=== PATIENT | female | born 1970 | race Two or more races ===

== ENCOUNTER 2025-04-14 14:49 | Inpatient (IN) | payer BC, OTHER ==
[~2025-04-14] VITALS: Ht 152.4 cm; Wt 87.0 kg
--- NOTE | 2025-04-14 14:54 | ED.PDOC ---
History of Present Illness HPI Comments 54-year-old female brought by paramedics because of shortness a breath which started this morning. She does have history of multiple sclerosis. She is paraplegic. Being taken care of by family member. Paramedics noticed her saturation was 70% on room air. She was placed on 10 L face mask which increased the saturation above 90%. Patient unable to express herself because of shortness a breath. Denies any other symptoms. 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 History Social History Smoker: Non-Smoker Alcohol: Denies ETOH Use Drugs: Denies Drug Use Constitutional: denies: chills, diaphoresis, fatigue, fever, malaise, sweats, weakness, others EENTM: denies: blurred vision, double vision, ear bleeding, ear discharge, ear drainage, ear pain, ear ringing, eye pain, eye redness, hearing loss, mouth pain, mouth swelling, nasal discharge, nose bleeding, nose congestion, nose pain, photophobia, tearing, throat pain, throat swelling, voice changes, others Respiratory: reports: shortness of breath; denies: cough, hemoptysis, orthopnea, SOB at rest, SOB with excertion, stridor, wheezing, others Cardiovascular: denies: chest pain, dizzy spells, diaphoresis, Dyspnea on exertion, edema, irregular heart beat, left arm pain, lightheadedness, palpitations, PND, syncope, others Gastrointestinal: denies: abdomen distended, abdominal pain, blood streaked bowels, constipated, diarrhea, dysphagia, difficulty swallowing, hematemesis, melena, nausea, poor appetite, poor fluid intake, rectal bleeding, rectal pain, vomiting, others Genitourinary: denies: abnormal vagina bleeding, burning, dyspareunia, dysuria, flank pain, frequency, hematuria, incontinence, pain, , vagina discharge, urgency, others Neurological: denies: dizziness, fainting, headache, left sided numbness, left sided weakness, numbness, paresthesia, pre-existing deficit, right sided numbness, right sided weakness, seizure, speech problems, tingling, tremors, weakness, others Musculoskeletal: denies: back pain, gout, joint pain, joint swelling, muscle pain, muscle stiffness, neck pain, others Integumetry: denies: bruises, change in color, change in hair/nails, dryness, laceration, lesions, lumps, rash, wounds, others Allergic/Immunocompromised: denies: Difficulty Healing, Frequent Infections, Hives, Itching, others Hematologic/Lymphatic: denies: anemia, blood clots, easy bleeding, easy bruising, swollen glands, others Endocrine: denies: excessive hunger, excessive sweating, excessive thirst, excessive urination, flushing, intolerance to cold, intolerance to heat, unexplained weight gain, unexplained weight loss, others Psychiatric: denies: anxiety, bipolar disorder, depression, hopeless, panic disorder, schizophrenia, sleepless, suicidal, others Physical Exam General Appearance: Moderate Distress HEENT: Normal ENT Inspection, Pharynx Normal, TMs Normal Neck: Full Range of Motion, Non-Tender, Normal, Normal Inspection Respiratory: Other (Coarse breath sounds) Cardiovascular: No Edema, No JVD, No Murmur, No Gallop, Normal Peripheral Pulses, Regular Rate/Rhythm Breast Exam: Deferred Gastrointestinal: No Organomegaly, Non Tender, No Pulsatile Mass, Normal Bowel Sounds, Soft Genitalia: Deferred Pelvic: Deferred Rectal: Deferred Extremities: No calf tenderness, No pedal edema, Other (Paraplegic) Musculoskeletal : Apperance: Normal Neurologic: Alert Cerebellar Function: NOT DONE Reflexes: NOT DONE Skin: Normal Color Peripheral Pulses: 3+ Radial (R), 3+ Radial (L) Lymphatic: No Adenopathy Was a procedure done? Was a procedure done?: No Differential Dx Considerations may include: Pneumonia Electrolyte imbalance X-Ray, Labs, Meds, VS Vital Signs Date Time Temp Pulse Resp B/P (MAP) Pulse Ox O2 Delivery O2 Flow Rate FiO2 04/14/25 15:51 101.6 04/14/25 15:30 101.6 99 14 102/65 (77) 92 101.6 04/14/25 15:30 99 19 92 Nasal Cannula* 3 32 04/14/25 15:06 101.6 100 22 115/68 (84) 93 101.6 04/14/25 15:06 22 93 Non-Rebreather 8 N/A Lab Test 04/14/25 15:29 04/14/25 15:17 Range/Units White Blood Count 6.8 4.4-10.8 10^3/uL Red Blood Count 4.67 4.0-5.20 10^6/uL Hemoglobin 12.8 12.2-16.2 g/dL Hematocrit 38.3 36.0-46.0 % Mean Corpuscular Volume 81.9 80.0-100.0 fL Mean Corpuscular Hemoglobin 27.3 L 28.0-32.0 pg Mean Corpuscular Hemoglobin Concent 33.4 32.0-36.0 g/dL Red Cell Distribution Width 15.2 H 11.8-14.3 % Platelet Count 207 140-450 10^3/uL Mean Platelet Volume 8.2 6.9-10.8 fL Neutrophils (%) (Auto) 86.1 H 37.0-80.0 % Lymphocytes (%) (Auto) 8.8 L 10.0-50.0 % Monocytes (%) (Auto) 5.0 0.0-12.0 % Eosinophils (%) (Auto) 0.0 0.0-7.0 % Basophils (%) (Auto) 0.1 0.0-2.0 % Neutrophils # (Auto) 5.9 1.6-8.6 10 ^3/uL Lymphocytes # (Auto) 0.6 0.4-5.4 10 ^3/uL Monocytes # (Auto) 0.3 0-1.3 10 ^3/uL Eosinophils # (Auto) 0 0-0.8 10 ^3/uL Basophils # (Auto) 0 0-0.2 10 ^3/uL Nucleated Red Blood Cells 0.0 % Sodium Level 132 L 136-145 mmol/L Potassium Level 3.2 L 3.5-5.1 mmol/L Chloride Level 93 L 98-107 mmol/L Carbon Dioxide Level 27 20-31 mmol/L Anion Gap 12 5-15 Blood Urea Nitrogen 5 L 9-23 mg/dL Creatinine 0.24 L 0.550-1.02 mg/dL Glomerular Filtration Rate Calc 135 >90 mL/min BUN/Creatinine Ratio 20.8 H 10.0-20.0 Serum Glucose 113 H 74-106 mg/dL Lactic Acid Level 1.5 0.4-2.0 mmol/L Calcium Level 8.2 L 8.7-10.4 mg/dL Troponin I High Sensitivity 6 </=34 ng/L Urine Color Yellow Yellow Urine Clarity Turbid H Clear Urine pH 7.0 5.0-9.0 Urine Specific [place] 1.021 1.001-1.035 Urine Protein 1+ H Negative Urine Ketones 3+ H Negative Urine Blood Negative Negative /uL Urine Nitrite 2+ H Negative Urine Bilirubin Negative Negative Urine Urobilinogen Normal Negative mg/dL Urine Leukocyte Esterase Negative Negative /uL Urine RBC 4 0 - 4 /hpf Urine Microscopic WBC 10 H 0-5 /HPF Urine Squamous Epithelial Cells Few <5 /hpf Urine Amorphous Crystals Few None Seen /hpf Urine Bacteria Few H None Seen /hpf Urine Mucus Few None Seen Urine Glucose Normal Normal mg/dL Current Medications Medications (Trade) Dose Ordered Sig/Oscar Route Start Time Stop Time Status Last Admin Ceftriaxone Sodium 50 ml @ 100 mls/hr ONCE ONCE IV 04/14/25 15:00 04/14/25 15:29 DC 04/14/25 15:30 Sodium Chloride 1,000 ml @ 1,000 mls/hr Q1H ONCE IV 04/14/25 15:00 04/14/25 15:59 DC 04/14/25 15:30 Acetaminophen (Tylenol Tablet) 650 mg ONCE ONCE PO 04/14/25 15:45 04/14/25 15:46 DC 04/14/25 15:51 Patient alert. Placed on oxygen. Shortness a breath. Answering questions. Paraplegic. Possible pneumonia. Establish intravenous access. Was given fluids. Possible sepsis. Was given Rocephin. Was given azithromycin. Explained to the patient. Continue monitoring. Time of 1ST Reevaluation: 14:56 Reevaluation 1ST: Unchanged Patient Education/Counseling: Diagnosis, Treatment, Prognosis, Need For Follow Up Family Education/Counseling: No Family Present SEPSIS Sepsis Screen Physician Orders Chest Portable (04/14/25 14:57) Blood Culture (04/14/25 14:51) Azithromycin 500mg/ 250ml (Zithromax 50 (04/14/25 15:00) Sodium Chloride 0.9% (04/14/25 15:00) Electrocardigram (04/14/25 15:14) Sodium Chloride 0.9% (04/14/25 15:45) Vital Signs Date Time Temp Pulse Resp B/P (MAP) Pulse Ox O2 Delivery O2 Flow Rate FiO2 04/14/25 15:51 101.6 04/14/25 15:30 101.6 99 14 102/65 (77) 92 101.6 04/14/25 15:30 99 19 92 Nasal Cannula* 3 32 04/14/25 15:06 101.6 100 22 115/68 (84) 93 101.6 04/14/25 15:06 22 93 Non-Rebreather 8 N/A Laboratory Tests Test 04/14/25 15:29 Lactic Acid Level 1.5 mmol/L (0.4-2.0) White Blood Count 6.8 10^3/uL (4.4-10.8) Medications Medications Dose Ordered Sig/Oscar Route Start Time Stop Time Status Last Admin Dose Admin Acetaminophen 650 mg ONCE ONCE PO 04/14/25 15:45 04/14/25 15:46 DC 04/14/25 15:51 Ceftriaxone Sodium 50 ml @ 100 mls/hr ONCE ONCE IV 04/14/25 15:00 04/14/25 15:29 DC 04/14/25 15:30 Sodium Chloride 1,000 ml @ 1,000 mls/hr Q1H ONCE IV 04/14/25 15:00 04/14/25 15:59 DC 04/14/25 15:30 Departure 1 Departure Time of Disposition: 14:57 Impression: Primary Impression: Acute respiratory failure Qualified Codes: J96.01 - Acute respiratory failure with hypoxia Additional Impressions: Pneumonia Qualified Codes: J18.9 - Pneumonia, unspecified organism Sepsis due to urinary tract infection Disposition: ADMITTED INPATIENT Admit to: Med Surg Condition: Guarded Critical Care Note Critical Care Time?: Yes (90 min-critical care time only) Critical care comment: Placed on oxygen Stability Stability form required: No Heart Score Heart Score: Heart Score Response (Comments) Value History N/A 0 EKG N/A 0 Age N/A 0 Risk Factors N/A 0 Troponin N/A 0 Total 0 MARISELA WHITMORE MD Apr 14, 2025 14:54
[2025-04-14 15:30] VITALS: PULSE 99; RESP 19; O2SAT 92
[2025-04-14] MEDS: SODIUM CHLORIDE 0.9% 1,000 ML IV ONE ×3 (15:30→19:00)
[2025-04-14] MEDS: cefTRIAXone 1GM/50ML D5W 50 ML IV ONE (15:30)
--- NOTE | 2025-04-14 15:35 | DVH ---
EXAM: XY CHEST PORTABLE Indication: sob Technique: Single frontal view of the chest was obtained Comparison: None FINDINGS: Lines and Tubes: None Lungs: Multifocal consolidative opacities. Low lung volumes. Pleura: No effusion. No pneumothorax. Cardiomediastinal contours: Unremarkable. Suggestion of a large hiatal hernia. Bones: No acute osseous abnormality. IMPRESSION: Multifocal pneumonia. Suggestion of a large hiatal hernia.
[2025-04-14 15:41] LABS: Hematocrit 38.3 % (36.0-46.0); Hemoglobin 12.8 g/dL (12.2-16.2); Mean Corpuscular Hemoglobin 27.3 pg (28.0-32.0); Mean Corpuscular Volume 81.9 fL (80.0-100.0); Nucleated Red Blood Cells % 0.0 %
[2025-04-14 15:49] LABS: Anion Gap 12 (5-15); Carbon Dioxide 27 mmol/L (20-31)
[2025-04-14] MEDS: ACETAMINOPHEN 325 MG TAB PO ONE (15:51)
[2025-04-14 15:53] LABS: Calcium 8.2 mg/dL (8.7-10.4); Chloride 93 mmol/L (98-107); Potassium 3.2 mmol/L (3.5-5.1); Sodium 132 mmol/L (136-145)
[2025-04-14 15:55] LABS: BUN/Creatinine Ratio 20.8 (10.0-20.0); Blood Urea Nitrogen 5 mg/dL (9-23); Glucose 113 mg/dL (74-106)
[2025-04-14 16:04] LABS: Urine Amorphous Crystal FEW /hpf (None Seen); Urine Protein, UAD 1+ (Negative)
[2025-04-14] MEDS: AZITHROMYCIN 500MG/ 250ML 250 ML IV ONE (16:43)
[2025-04-14] MEDS: POTASSIUM EFFERVESENT TAB 25 MEQ PO ONE (16:44)
[2025-04-14] MEDS ORDERED: ONDANSETRON HCL 4 MG/2 ML VIAL IV PRN (19:00)
[2025-04-14] MEDS ORDERED: ALBUTEROL SULF 2.5 MG/0.5ML(0.5%) NEB SOLN NEB PRN (19:00)
[2025-04-14 19:25] VITALS: O2SAT 95
[2025-04-14 19:30] VITALS: PULSE 91; RESP 14; O2SAT 98
[2025-04-14 21:42] VITALS: BP 102/65; PULSE 84; RESP 12; TEMP 98.7; O2SAT 95
--- NOTE | 2025-04-14 22:31 | DVHHP2 ---
History of Present Illness Reason for Visit: Shortness for breath History of Present Illness 54-year-old female presents for evaluation of shortness for breath. Patient with a history of quadriplegia secondary to multiple sclerosis and bed ridden presents for a two day history of worsening shortness for breath. Patient has has been reports symptoms of a cold for the past one-week. He states that over the past two days patient has been having intermittent fever with cough and shortness for breath. No complaints of chest pain. Past Medical History Multiple sclerosis Past Surgical History Denies Family History Noncontributory Smoke: No ALCOHOL: none Drugs: None Lives: with Family Review of Systems Review of Systems Review of systems are currently negative otherwise addressed in HPI. Allergies: Coded Allergies: NO KNOWN ALLERGIES (Unverified , 05/21/14) Medications Current Medications Medications Dose Ordered Sig/Oscar Route Start Time Stop Time Status Last Admin Dose Admin Ceftriaxone Sodium 50 ml @ 100 mls/hr DAILY@09 IV 04/15/25 09:00 Azithromycin 250 ml @ 125 mls/hr DAILY IV 04/15/25 10:00 Albuterol 2.5 mg Q6HPRN PRN NEB 04/14/25 19:00 Acetaminophen/ Hydrocodone Bitart 1 tab Q4HP PRN PO 04/14/25 19:00 Ondansetron HCl 4 mg Q4HP PRN IV 04/14/25 19:00 Enoxaparin Sodium 40 mg DAILY SC 04/15/25 10:00 Acetaminophen 650 mg Q6HP PRN PO 04/14/25 19:00 Exam Vital Signs Vital Signs Date Time Temp Pulse Resp B/P (MAP) Pulse Ox O2 Delivery O2 Flow Rate FiO2 04/14/25 21:42 98.7 84 12 102/65 95 3.0 32 98.7 04/14/25 19:25 Nasal Cannula* Exam Gen: 54-year-old female in mild distress Skin: Warm, dry, normal color and texture, no rash. HEENT: Normocephalic atraumatic, mucous membranes moist and pink. Neck: Cervical and supraclavicular nodes normal without enlargement, trachea is midline, thyroid gland is normal without masses. Pulmonary: Bilateral rhonchi Cardiac: Regular rate and rhythm. No murmur Abdomen: Soft, nontender, nondistended, bowel sounds present all 4 quadrants, no guarding, no rigidity, no organomegaly. Extremities: No cyanosis, clubbing, no edema Neuro: Quadriplegia secondary to MS Labs/Xrays ORDERING PHYSICIAN: MARISELA WHITMORE MD PROCEDURE(s): CXRP - CHEST PORTABLE REASON: sob ORDER NUMBER(s): [id number], ACCESSION NUMBER(s): [id number] EXAM: XY CHEST PORTABLE Indication: sob Technique: Single frontal view of the chest was obtained Comparison: None FINDINGS: Lines and Tubes: None Lungs: Multifocal consolidative opacities. Low lung volumes. Pleura: No effusion. No pneumothorax. Cardiomediastinal contours: Unremarkable. Suggestion of a large hiatal hernia. Bones: No acute osseous abnormality. IMPRESSION: Multifocal pneumonia. Suggestion of a large hiatal hernia. Labs Test 04/14/25 15:29 04/14/25 15:17 Range/Units White Blood Count 6.8 4.4-10.8 10^3/uL Red Blood Count 4.67 4.0-5.20 10^6/uL Hemoglobin 12.8 12.2-16.2 g/dL Hematocrit 38.3 36.0-46.0 % Mean Corpuscular Volume 81.9 80.0-100.0 fL Mean Corpuscular Hemoglobin 27.3 L 28.0-32.0 pg Mean Corpuscular Hemoglobin Concent 33.4 32.0-36.0 g/dL Red Cell Distribution Width 15.2 H 11.8-14.3 % Platelet Count 207 140-450 10^3/uL Mean Platelet Volume 8.2 6.9-10.8 fL Neutrophils (%) (Auto) 86.1 H 37.0-80.0 % Lymphocytes (%) (Auto) 8.8 L 10.0-50.0 % Monocytes (%) (Auto) 5.0 0.0-12.0 % Eosinophils (%) (Auto) 0.0 0.0-7.0 % Basophils (%) (Auto) 0.1 0.0-2.0 % Neutrophils # (Auto) 5.9 1.6-8.6 10 ^3/uL Lymphocytes # (Auto) 0.6 0.4-5.4 10 ^3/uL Monocytes # (Auto) 0.3 0-1.3 10 ^3/uL Eosinophils # (Auto) 0 0-0.8 10 ^3/uL Basophils # (Auto) 0 0-0.2 10 ^3/uL Nucleated Red Blood Cells 0.0 % Sodium Level 132 L 136-145 mmol/L Potassium Level 3.2 L 3.5-5.1 mmol/L Chloride Level 93 L 98-107 mmol/L Carbon Dioxide Level 27 20-31 mmol/L Anion Gap 12 5-15 Blood Urea Nitrogen 5 L 9-23 mg/dL Creatinine 0.24 L 0.550-1.02 mg/dL Glomerular Filtration Rate Calc 135 >90 mL/min BUN/Creatinine Ratio 20.8 H 10.0-20.0 Serum Glucose 113 H 74-106 mg/dL Lactic Acid Level 1.5 0.4-2.0 mmol/L Calcium Level 8.2 L 8.7-10.4 mg/dL Troponin I High Sensitivity 6 </=34 ng/L Urine Color Yellow Yellow Urine Clarity Turbid H Clear Urine pH 7.0 5.0-9.0 Urine Specific [employer] 1.021 1.001-1.035 Urine Protein 1+ H Negative Urine Ketones 3+ H Negative Urine Blood Negative Negative /uL Urine Nitrite 2+ H Negative Urine Bilirubin Negative Negative Urine Urobilinogen Normal Negative mg/dL Urine Leukocyte Esterase Negative Negative /uL Urine RBC 4 0 - 4 /hpf Urine Microscopic WBC 10 H 0-5 /HPF Urine Squamous Epithelial Cells Few <5 /hpf Urine Amorphous Crystals Few None Seen /hpf Urine Bacteria Few H None Seen /hpf Urine Mucus Few None Seen Urine Glucose Normal Normal mg/dL Assessment/Plan Assessment/Plan Assessment Multifocal pneumonia Multiple sclerosis Quadriplegic secondary to the above Hypokalemia Urinary tract infection Bed ridden Plan Admit the patient to Med surge to the hospitalist Med nebs Azithromycin/Rocephin Resume home medications Continue treatment per orders. Plan discussed with: Patient My Orders Orders - WILLARD RAMIREZ AGACNP Procedure Category Date Status Time Regular Diet DIET 04/15/25 Transmitted Breakfast Ceftriaxone 1gm/50ml PHA 04/15/25 In Process D5w (Rocephin) 09:00 Azithromycin 500mg/ PHA 04/15/25 In Process 250ml (Zithromax 50 10:00 Albuterol Medneb PHA 04/14/25 In Process (Ventolin Medneb) 19:00 Basic Metabolic Panel LAB 04/15/25 Verified 04:00 Admit ADMIT 04/14/25 Transmitted 18:57 Hydrocodone-Acet PHA 04/14/25 In Process 5/325mg Tab ([place] 19:00 Ondansetron Hcl PHA 04/14/25 In Process (Zofran) 19:00 Enoxaparin Sodium PHA 04/15/25 In Process (Lovenox) 10:00 Complete Blood Count LAB 04/15/25 Verified 04:00 Condition: Stable SUKHJINDER 04/14/25 In Process 18:57 Acetaminophen Tablet PHA 04/14/25 In Process (Tylenol Tablet) 19:00 Bedrest With Bathroom SUKHJINDER 04/14/25 In Process Privileg 18:57 Date of Service: Apr 14, 2025 Billing Provider: WILLARD RAMIREZ Common Visit Codes: [id number] INP/OBS CARE (HIGH) WILLARD RAMIREZ Apr 14, 2025 22:31
[2025-04-14] MEDS: guaiFENesin-DM 100/10mg/5ml SYR PO PRN (23:22)
[2025-04-15] VITALS (11 sets, daily range): BP systolic 116–133; BP diastolic 64–83; PULSE 101–108; RESP 16–25; TEMP 98.4–99.7; O2SAT 92–98
[2025-04-15] MEDS: HYDROcodone-ACET 5/325MG TAB PO PRN (00:17)
[2025-04-15] MEDS: ALBUTEROL SULF 2.5 MG/0.5ML(0.5%) NEB SOLN NEB PRN (06:48)
[2025-04-15] MEDS: ACETYLCYSTEINE 10 %(100MG/ML) SOL 4ML NEB SCH (06:49)
[2025-04-15 08:08] LABS: Hematocrit 36.4 % (36.0-46.0); Hemoglobin 12.3 g/dL (12.2-16.2); Mean Corpuscular Hemoglobin 27.6 pg (28.0-32.0); Mean Corpuscular Volume 82.1 fL (80.0-100.0); Nucleated Red Blood Cells % 0.0 %
[2025-04-15 08:18] LABS: Chloride 100 mmol/L (98-107); Potassium 3.6 mmol/L (3.5-5.1); Sodium 138 mmol/L (136-145)
[2025-04-15 08:19] LABS: Anion Gap 9 (5-15); Carbon Dioxide 29 mmol/L (20-31)
[2025-04-15 08:21] LABS: Calcium 8.4 mg/dL (8.7-10.4)
[2025-04-15 08:24] LABS: Glucose 99 mg/dL (74-106)
[2025-04-15 08:25] LABS: BUN/Creatinine Ratio 21.7 (10.0-20.0); Blood Urea Nitrogen < 5 mg/dL (9-23)
[2025-04-15] MEDS: cefTRIAXone 1GM/50ML D5W 50 ML IV SCH (09:29)
[2025-04-15] MEDS: ENOXAPARIN SOD 40 MG/0.4 ML SYRINGE SC SCH (10:30)
[2025-04-15] MEDS: AZITHROMYCIN 500MG/ 250ML 250 ML IV SCH (10:30)
[2025-04-15] MEDS: ACETAMINOPHEN 325 MG TAB PO PRN (11:08)
--- NOTE | 2025-04-15 15:47 | DVHPN2 ---
Subjective Cough continues, patient communication volume is very low. She looks really sick. Reviewed: H&P Changes from previous H/P or p: No Changes General: Per HPI Objective Vitals Vital Signs Date Time Temp Pulse Resp B/P (MAP) Pulse Ox O2 Delivery O2 Flow Rate FiO2 04/15/25 14:18 104 24 93 04/15/25 14:00 98.2 95/59 (71) 98.2 04/15/25 13:10 Simple Mask* 6 50 Intake/Output Intake and Output 04/15/25 07:00 Output Total 2825 ml Balance -2825 ml Output Urine Total 2825 ml Exam GEN: Healthy appearing, well-developed, NAD. HEENT: NC/AT; MMM. CV: RRR, no m/r/g. LUNGS: Bilateral bilateral rhonchi diffusely bilateral. Poor air movement bilaterally. ABD: Soft, NT/ND, NBS, no masses or organomegaly. EXT: skin Warm, well perfused. no rashes. No clubbing, cyanosis, or edema. NEURO: Ambulating with no limitations. No focal deficits. Medications Current Medications Medications Dose Ordered Sig/Oscar Route Start Time Stop Time Status Last Admin Dose Admin Ceftriaxone Sodium 50 ml @ 100 mls/hr DAILY@09 IV 04/15/25 09:00 04/15/25 09:29 100 MLS/HR Azithromycin 250 ml @ 125 mls/hr DAILY IV 04/15/25 10:00 04/15/25 10:30 125 MLS/HR Albuterol 2.5 mg Q6HPRN PRN NEB 04/14/25 19:00 Cancel Acetaminophen/ Hydrocodone Bitart 1 tab Q4HP PRN PO 04/14/25 19:00 04/15/25 00:17 1 TAB Ondansetron HCl 4 mg Q4HP PRN IV 04/14/25 19:00 Enoxaparin Sodium 40 mg DAILY SC 04/15/25 10:00 04/15/25 10:30 40 MG Acetaminophen 650 mg Q6HP PRN PO 04/14/25 19:00 04/15/25 11:08 650 MG Guaifenesin/ Dextromethorphan 10 ml Q4HP PRN PO 04/14/25 22:30 04/14/25 23:22 10 ML Acetylcysteine 100 mg Q8HR NEB 04/15/25 06:00 04/15/25 14:08 100 MG Albuterol 2.5 mg Q6HPRN PRN NEB 04/14/25 22:30 04/15/25 14:08 2.5 MG Laboratory Results Laboratory Tests 04/15/25 07:37 Chemistry Test 04/15/25 07:37 Calcium Level 8.4 mg/dL (8.7-10.4) L Urinalysis Test 04/14/25 15:17 Urine Color Yellow (Yellow) Urine Clarity Turbid (Clear) H Urine pH 7.0 (5.0-9.0) Urine Specific [place] 1.021 (1.001-1.035) Urine Protein 1+ (Negative) H Urine Ketones 3+ (Negative) H Urine Blood Negative /uL (Negative) Urine Nitrite 2+ (Negative) H Urine Bilirubin Negative (Negative) Urine Urobilinogen Normal mg/dL (Negative) Urine Leukocyte Esterase Negative /uL (Negative) Urine RBC 4 /hpf (0 - 4) Urine Microscopic WBC 10 /HPF (0-5) H Urine Squamous Epithelial Cells Few /hpf (<5) Urine Amorphous Crystals Few /hpf (None Seen) Urine Bacteria Few /hpf (None Seen) H Urine Mucus Few (None Seen) Urine Glucose Normal mg/dL (Normal) Microbiology Microbiology Date/Time Source Procedure Growth Status 04/14/25 15:29 Blood Blood Culture - Preliminary Resulted Labs and/or images reviewed: Labs reviewed by me, Image(s) reviewed by me Assessment/Plan Assessment/Plan 04/15-patient has 10 year history of muscular sclerosis. She is bed-bound with chronic Mendoza and a baclofen pump subumbilical region. patient is seen in ER today. Patient is not speaking inadequate volume. Very low volume which might be baseline. She is able to breathe but has diffuse coarse rhonchi in bilateral lungs right > left. Patient is high-risk with immunocompromise in factors we will escalate antibiotics from ceftriaxone azithromycin 2 cefepime doxy. Patient also has blood cultures positive today with Gram-positive cocci. We will continue neck N-acetylcysteine. Patient cough is very thick neck is being tried if fails we will need pulmonology consult. We will increase patient's diet to puree. Acute hypoxic respiratory failure Acute complicated multifocal pneumonia, Gram-negative Gram-positive likely Gram-positive bacteremia Sepsis due to above Neutrophilia Tachycardia Tachypnea Quadriplegia due to multiple sclerosis Chronic remitting relapsing multiple sclerosis Acute complicated UTI with chronic urinary Mendoza - continue IV antibiotics doxycycline and cefepime. Prior was ceftriaxone and azithromycin - continue IV maintenance fluids - prn pain control p.o. and IV as needed - N-acetylcysteine inhalation treatments Pureed diet GI prophylaxis IV Protonix DVT prophylaxis-Lovenox Telemetry Full code Plan discussed with: Patient My Orders Orders - KIRILL KEYES MD Procedure Category Date Status Time Pureed DIET 04/15/25 Transmitted Dinner Date of Service: Apr 15, 2025 Billing Provider: KIRILL KEYES MD Common Visit Codes: [id number] INP/OBS CARE(HIGH) KIRILL KEYES MD Apr 15, 2025 15:47
[2025-04-15] MEDS: DOXYCYCLINE 100MG/100ML 100 ML IV SCH (16:58)
[2025-04-15] MEDS ORDERED: TRAM50TA2 PO (19:50)
[2025-04-15] MEDS ORDERED: NORT75CA37 (19:50)
[2025-04-15] MEDS ORDERED: GABA-1251 PO (19:50)
[2025-04-15] MEDS ORDERED: BACL20TA PO (19:50)
[2025-04-15] MEDS: CEFEPIME 1GM/ 50ML 50 ML IV SCH (22:41)
[2025-04-16] VITALS (13 sets, daily range): BP systolic 116–162; BP diastolic 70–81; PULSE 84–108; RESP 16–20; TEMP 97.8–99.8; O2SAT 94–98
[2025-04-16 07:26] LABS: Albumin 3.4 g/dL (3.2-4.8); Alkaline Phosphatase 68 U/L (46-116); Anion Gap 10 (5-15); Bilirubin, Total 0.3 mg/dL (0.2-1.0); Carbon Dioxide 28 mmol/L (20-31); Chloride 101 mmol/L (98-107); Glucose 97 mg/dL (74-106); Sodium 139 mmol/L (136-145); Total Protein 5.9 g/dL (5.7-8.2)
[2025-04-16 07:27] LABS: Potassium 4.2 mmol/L (3.5-5.1)
[2025-04-16 07:28] LABS: Alanine Aminotransferase 14 U/L (7-40); BUN/Creatinine Ratio 20.8 (10.0-20.0); Blood Urea Nitrogen < 5 mg/dL (9-23); Calcium 8.6 mg/dL (8.7-10.4)
[2025-04-16 08:05] LABS: Hematocrit 35.8 % (36.0-46.0); Hemoglobin 11.8 g/dL (12.2-16.2); Mean Corpuscular Hemoglobin 27.1 pg (28.0-32.0); Mean Corpuscular Volume 82.0 fL (80.0-100.0); Nucleated Red Blood Cells % 0.0 %
--- NOTE | 2025-04-16 14:18 | DVHINCON2 ---
Date of service: Apr 16, [address] reeves Reason for Consultation #PNEUMONIA - History of Present Illness HPI Out of patient is a 54-year-old lady with a history of multiple sclerosis diagnosed in November 2008. She has been down he waits the patient is presented with cough over the last few days with yellow and brown mucus possibly was blood-tinged secretions. Patient receives nutrition through a regular meals and supplements such as ensure. According to the family the coughing occurs more after eating but no episodes of choking. Patient also has sacral bed sores Home Meds Reported Medications Nortriptyline HCl (Nortriptyline Hydrochlori) 75 Mg Cap 04/15/25 Tramadol Hcl (Tramadol Hcl) 50 Mg Tab, 1-2 TAB PO Q4HPRN PRN for PAIN SCALE 1 THRU 6 04/15/25 Baclofen (Baclofen) 20 Mg Tab, 1 TAB PO TID 04/15/25 Gabapentin (Gabapentin) 400 Mg Cap, 2 CAP PO TID 04/15/25 Past Medical History Cardiac: No pertinent Hx Pulmonary: No pertinent Hx Central Nervous System: No pertinent Hx, Other (MS) GI: No pertinent Hx Hemotology/Oncology: No pertinent Hx Hepatobiliary: No pertinent Hx Psychiatric: No pertinent Hx Musculoskeletal: No pertinent Hx Rheumotologic: No pertinent Hx Infectious Disease: No peritnent Hx ENT: No pertinent Hx Renal/: No pertinent Hx Endocrine: No pertinent Hx Dermatology: No pertinent Hx Past Surgical History: No pertinent Hx Patient Family History: FH: breast cancer G8 MOTHER Review of Systems Constitutional: Malaise Ears, Nose, & Throat: No symptom reported Eyes: No symptom reported Pulmonary/Respiratory: Dyspnea, Cough Cardiovascular: No symptom reported Gastrointestinal: No symptom reported Genitourinary: No symptom reported Musculoskeletal: No symptom reported Skin: No symptom reported Psychiatric: No symptom reported Endocrine: No symptom reported Hemotologic/Lymphatic: No symptom reported H&P Exam Vital Signs Vital Signs Date Time Temp Pulse Resp B/P (MAP) Pulse Ox O2 Delivery O2 Flow Rate FiO2 04/16/25 13:47 97 20 98 04/16/25 13:39 Oxymizer 8 N/A 04/16/25 09:00 99.3 123/70 (87) 99.3 General Appeara: Well developed, Well nourished, Normal Appearance Head Exam: Normal inspection Neck Exam: Normal inspection, Non-tender, Normal alignment Eye Exam: bilateral eye Normal inspection, bilateral eye PERRL, bilateral eye EOMI Ear Exam: bilateral ear Auricle normal, bilateral ear Canal normal Nasal Exam: Normal inspection Mouth: Normal Inspection Pulmonary/Respiratory: Normal inspection, Normal breath sounds, Chest non- tender Cardiovascular/Chest: Normal inspection Peripheral Pulses: 4+ carotid (R), 4+ carotid (L) Abdominal Exam: Normal bowel sounds, Soft Labs/Xrays Labs Test 04/16/25 07:21 04/16/25 06:15 04/14/25 15:29 04/14/25 15:17 Range/Units White Blood Count 9.6 4.4-10.8 10^3/uL Red Blood Count 4.36 4.0-5.20 10^6/uL Hemoglobin 11.8 L 12.2-16.2 g/dL Hematocrit 35.8 L 36.0-46.0 % Mean Corpuscular Volume 82.0 80.0-100.0 fL Mean Corpuscular Hemoglobin 27.1 L 28.0-32.0 pg Mean Corpuscular Hemoglobin Concent 33.1 32.0-36.0 g/dL Red Cell Distribution Width 15.7 H 11.8-14.3 % Platelet Count 278 140-450 10^3/uL Mean Platelet Volume 7.7 6.9-10.8 fL Neutrophils (%) (Auto) 86.2 H 37.0-80.0 % Lymphocytes (%) (Auto) 9.8 L 10.0-50.0 % Monocytes (%) (Auto) 3.9 0.0-12.0 % Eosinophils (%) (Auto) 0.0 0.0-7.0 % Basophils (%) (Auto) 0.1 0.0-2.0 % Neutrophils # (Auto) 8.3 1.6-8.6 10 ^3/uL Lymphocytes # (Auto) 0.9 0.4-5.4 10 ^3/uL Monocytes # (Auto) 0.4 0-1.3 10 ^3/uL Eosinophils # (Auto) 0 0-0.8 10 ^3/uL Basophils # (Auto) 0 0-0.2 10 ^3/uL Nucleated Red Blood Cells 0.0 % Sodium Level 139 136-145 mmol/L Potassium Level 4.2 3.5-5.1 mmol/L Chloride Level 101 98-107 mmol/L Carbon Dioxide Level 28 20-31 mmol/L Anion Gap 10 5-15 Blood Urea Nitrogen < 5 L 9-23 mg/dL Creatinine 0.24 L 0.550-1.02 mg/dL Glomerular Filtration Rate Calc 135 >90 mL/min BUN/Creatinine Ratio 20.8 H 10.0-20.0 Serum Glucose 97 74-106 mg/dL Calcium Level 8.6 L 8.7-10.4 mg/dL Total Bilirubin 0.3 0.2-1.0 mg/dL Aspartate Amino Transferase (AST) 40 H <34 U/L Alanine Aminotransferase (ALT) 14 7-40 U/L Alkaline Phosphatase 68 46-116 U/L Total Protein 5.9 5.7-8.2 g/dL Albumin 3.4 3.2-4.8 g/dL Lactic Acid Level 1.5 0.4-2.0 mmol/L Troponin I High Sensitivity 6 </=34 ng/L Urine Color Yellow Yellow Urine Clarity Turbid H Clear Urine pH 7.0 5.0-9.0 Urine Specific Richardson 1.021 1.001-1.035 Urine Protein 1+ H Negative Urine Ketones 3+ H Negative Urine Blood Negative Negative /uL Urine Nitrite 2+ H Negative Urine Bilirubin Negative Negative Urine Urobilinogen Normal Negative mg/dL Urine Leukocyte Esterase Negative Negative /uL Urine RBC 4 0 - 4 /hpf Urine Microscopic WBC 10 H 0-5 /HPF Urine Squamous Epithelial Cells Few <5 /hpf Urine Amorphous Crystals Few None Seen /hpf Urine Bacteria Few H None Seen /hpf Urine Mucus Few None Seen Urine Glucose Normal Normal mg/dL Microbiology Date/Time Source Procedure Growth Status 04/14/25 15:29 Blood Blood Culture - Preliminary Resulted Assessment/Plan Plan Acute hypoxemic respiratory failure History of multiple sclerosis Pneumonia Pressure sores Patient seen and examined Currently on oxygen Labs reviewed Imaging Chest Bilateral opacities/atelectasis Management plan/recommendations Supplemental O2 Incentive spirometry Aspiration precautions Recommend swallow eval Broad-spectrum antibiotics Deescalate based on cultures Wound Care Pain control/DVT prophylaxis Plan discussed with: Patient CHARIS CARLISLE MD Apr 16, 2025 14:18
--- NOTE | 2025-04-16 15:39 | DVHPN2 ---
Subjective Cough continues, patient communication volume is very low. She looks really sick. Reviewed: H&P Changes from previous H/P or p: No Changes General: Per HPI Objective Vitals Vital Signs Date Time Temp Pulse Resp B/P (MAP) Pulse Ox O2 Delivery O2 Flow Rate FiO2 04/16/25 13:47 97 20 98 04/16/25 13:39 Oxymizer 8 N/A 04/16/25 13:00 98.6 131/70 (90) 98.6 Intake/Output Intake and Output 04/16/25 07:00 Intake Total 2250 ml Output Total 2400 ml Balance -150 ml Intake Oral 2000 ml IV Total 250 ml Output Urine Total 2400 ml # Bowel Movements 1 Exam GEN: Healthy appearing, well-developed, NAD. HEENT: NC/AT; MMM. CV: RRR, no m/r/g. LUNGS: Bilateral bilateral rhonchi diffusely bilateral. Poor air movement bilaterally. ABD: Soft, NT/ND, NBS, no masses or organomegaly. EXT: skin Warm, well perfused. no rashes. No clubbing, cyanosis, or edema. NEURO: Ambulating with no limitations. No focal deficits. Medications Current Medications Medications Dose Ordered Sig/Oscar Route Start Time Stop Time Status Last Admin Dose Admin Albuterol 2.5 mg Q6HPRN PRN NEB 04/14/25 19:00 Cancel Acetaminophen/ Hydrocodone Bitart 1 tab Q4HP PRN PO 04/14/25 19:00 04/16/25 14:02 1 TAB Ondansetron HCl 4 mg Q4HP PRN IV 04/14/25 19:00 Enoxaparin Sodium 40 mg DAILY SC 04/15/25 10:00 04/16/25 09:05 40 MG Acetaminophen 650 mg Q6HP PRN PO 04/14/25 19:00 04/16/25 03:40 650 MG Guaifenesin/ Dextromethorphan 10 ml Q4HP PRN PO 04/14/25 22:30 04/14/25 23:22 10 ML Acetylcysteine 100 mg Q8HR NEB 04/15/25 06:00 04/16/25 13:39 100 MG Albuterol 2.5 mg Q6HPRN PRN NEB 04/14/25 22:30 04/16/25 13:39 2.5 MG Cefepime HCl 50 ml @ 12.5 mls/hr Q8HR IV 04/15/25 22:00 04/16/25 14:12 12.5 MLS/HR Doxycycline Hyclate 100 ml @ 50 mls/hr Q12H IV 04/16/25 18:00 Gabapentin 400 mg TID PO 04/16/25 22:00 UNV Tramadol HCl 50 mg Q4HPRN PRN PO 04/16/25 14:30 UNV Nortriptyline HCl 80 mg HS PO 04/16/25 22:00 UNV Baclofen 20 mg Q8HR PO 04/16/25 15:00 UNV Laboratory Results Laboratory Tests 04/16/25 06:15 04/16/25 07:21 Chemistry Test 04/16/25 06:15 Albumin 3.4 g/dL (3.2-4.8) Calcium Level 8.6 mg/dL (8.7-10.4) L Total Protein 5.9 g/dL (5.7-8.2) LFT Test 04/16/25 06:15 Alanine Aminotransferase (ALT) 14 U/L (7-40) Alkaline Phosphatase 68 U/L (46-116) Aspartate Amino Transferase (AST) 40 U/L (<34) H Total Bilirubin 0.3 mg/dL (0.2-1.0) Urinalysis Test 04/14/25 15:17 Urine Color Yellow (Yellow) Urine Clarity Turbid (Clear) H Urine pH 7.0 (5.0-9.0) Urine Specific Raymond 1.021 (1.001-1.035) Urine Protein 1+ (Negative) H Urine Ketones 3+ (Negative) H Urine Blood Negative /uL (Negative) Urine Nitrite 2+ (Negative) H Urine Bilirubin Negative (Negative) Urine Urobilinogen Normal mg/dL (Negative) Urine Leukocyte Esterase Negative /uL (Negative) Urine RBC 4 /hpf (0 - 4) Urine Microscopic WBC 10 /HPF (0-5) H Urine Squamous Epithelial Cells Few /hpf (<5) Urine Amorphous Crystals Few /hpf (None Seen) Urine Bacteria Few /hpf (None Seen) H Urine Mucus Few (None Seen) Urine Glucose Normal mg/dL (Normal) Microbiology Microbiology Date/Time Source Procedure Growth Status 04/14/25 15:29 Blood Blood Culture - Preliminary Resulted Labs and/or images reviewed: Labs reviewed by me, Image(s) reviewed by me Assessment/Plan Assessment/Plan 04/15-patient has 10 year history of muscular sclerosis. She is bed-bound with chronic Mendoza and a baclofen pump subumbilical region. patient is seen in ER today. Patient is not speaking inadequate volume. Very low volume which might be baseline. She is able to breathe but has diffuse coarse rhonchi in bilateral lungs right > left. Patient is high-risk with immunocompromise in factors we will escalate antibiotics from ceftriaxone azithromycin 2 cefepime doxy. Patient also has blood cultures positive today with Gram-positive cocci. We will continue neck N-acetylcysteine. Patient cough is very thick neck is being tried if fails we will need pulmonology consult. We will increase patient's diet to puree. 04/16- patient small improvement compared to yesterday. She is able to speak liver more clearly. Still has very strong rhonchi bilaterally. Remains on high level oxygen Oxymizer 8 L saturating well in mid 90s. She is tolerating food with diet being puree and able to drink liquids. Significant other is at bedside today. Update is no neurologist only seeing pain sales operations specialist. Per neurology has no further interventions to offer at this point and had approached patient with palliative/hospice. Patient remains full code. Pulmonology is consulted to eval for need for bronch. Antibiotics are broad cefepime/doxycycline. We will continue to treat patient with IV antibiotics. Other home medications are restarted for her pain and emesis spasms (scheduled baclofen, nortriptyline, gabapentin). if no improvement might need CT chest. Possible benefits with chest PT, defer to pulmonology. Diagnosis: Acute hypoxic respiratory failure Acute complicated multifocal pneumonia, Gram-negative Gram-positive likely Gram-positive bacteremia Sepsis due to above Neutrophilia Tachycardia Tachypnea Quadriplegia due to multiple sclerosis Chronic remitting relapsing multiple sclerosis Acute complicated UTI with chronic urinary Mendoza Plan: - continue IV antibiotics doxycycline and cefepime. Prior was ceftriaxone and azithromycin - continue IV maintenance fluids - prn pain control p.o. and IV as needed - N-acetylcysteine inhalation treatments - pulmonology consulted, eval for need for brown - SP O2 goal more than 90% Pureed diet GI prophylaxis IV Protonix DVT prophylaxis-Lovenox Telemetry Full code Plan discussed with: Patient My Orders Orders - KIRILL KEYES MD Procedure Category Date Status Time * Wound Consult CONS 04/15/25 Transmitted Cefepime 1gm/ 50ml PHA 04/15/25 In Process (Maxipime 1gm/50ml) 22:00 *Consult CONS 04/15/25 Transmitted / 16:03 * Dietary Consult CONS 04/15/25 Transmitted 19:39 Doxycycline PHA 04/16/25 In Process 100mg/100ml 18:00 Respiratory Culture TIMMY 04/16/25 Logged W/ Gs 12:55 Cleanse Wound With SUKHJINDER 04/16/25 In Process Wound Clean 10:46 Cleanse Wound With SUKHJINDER 04/16/25 In Process Mild Soap A 10:46 Gabapentin Capsule PHA 04/16/25 Logged (Neurontin Capsule) 22:00 Tramadol Hcl (Ultram) PHA 04/16/25 Logged 14:30 Nortriptyline Hcl PHA 04/16/25 Logged (Pamelor) 22:00 Baclofen Tablet PHA 04/16/25 Logged (Liorisal Tablet) 15:00 Date of Service: Apr 16, 2025 Billing Provider: KIRILL KEYES MD Common Visit Codes: [id number] INP/OBS CARE(HIGH) KIRILL KEYES MD Apr 16, 2025 15:39
[2025-04-16] MEDS: BACLOFEN 10 MG TAB PO SCH (17:46)
[2025-04-16] MEDS: DOXYCYCLINE 100MG/100ML 100 ML IV SCH (18:24)
[2025-04-16] MEDS: NORTRIPTYLINE 75 MG PO SCH (22:51)
[2025-04-16] MEDS: GABAPENTIN 400 MG CAP PO SCH (22:51)
[2025-04-17] VITALS (13 sets, daily range): BP systolic 126–157; BP diastolic 74–96; PULSE 79–107; RESP 16–20; TEMP 97.2–100.1; O2SAT 94–100
[2025-04-17 07:11] LABS: Hematocrit 36.7 % (36.0-46.0); Hemoglobin 12.1 g/dL (12.2-16.2); Mean Corpuscular Hemoglobin 27.2 pg (28.0-32.0); Mean Corpuscular Volume 82.3 fL (80.0-100.0); Nucleated Red Blood Cells % 0.0 %
[2025-04-17 07:23] LABS: BUN/Creatinine Ratio 26.1 (10.0-20.0)
[2025-04-17 07:25] LABS: Anion Gap 8 (5-15)
[2025-04-17 07:28] LABS: Calcium 9.1 mg/dL (8.7-10.4); Carbon Dioxide 32 mmol/L (20-31); Chloride 100 mmol/L (98-107); Potassium 3.2 mmol/L (3.5-5.1); Sodium 140 mmol/L (136-145)
[2025-04-17 07:29] LABS: Blood Urea Nitrogen 6 mg/dL (9-23)
[2025-04-17 07:38] LABS: Glucose 100 mg/dL (74-106)
[2025-04-17] MEDS: CEFEPIME 1GM/ 50ML 50 ML IV SCH (09:01)
--- NOTE | 2025-04-17 10:10 | DVHPN2 ---
Reviewed: Care Plan, H&P, Labs, Previous Orders Changes from previous H/P or p: No Changes General: Per HPI Objective Vitals Vital Signs Date Time Temp Pulse Resp B/P (MAP) Pulse Ox O2 Delivery O2 Flow Rate FiO2 04/17/25 09:00 97.2 96 18 139/79 (99) 95 97.2 04/17/25 06:22 Oxymizer 6.0 04/17/25 06:22 52 52 Intake/Output Intake and Output 04/17/25 07:00 Intake Total 2925 ml Output Total 2325 ml Balance 600 ml Intake Oral 2675 ml IV Total 250 ml Output Urine Total 2325 ml General Appearance: Alert, Oriented X3 Cardiovascular: Regular rate, Normal S1, Normal S2 Medications Current Medications Medications Dose Ordered Sig/Oscar Route Start Time Stop Time Status Last Admin Dose Admin Albuterol 2.5 mg Q6HPRN PRN NEB 04/14/25 19:00 Cancel Acetaminophen/ Hydrocodone Bitart 1 tab Q4HP PRN PO 04/14/25 19:00 04/16/25 14:02 1 TAB Ondansetron HCl 4 mg Q4HP PRN IV 04/14/25 19:00 Enoxaparin Sodium 40 mg DAILY SC 04/15/25 10:00 04/17/25 09:01 40 MG Acetaminophen 650 mg Q6HP PRN PO 04/14/25 19:00 04/16/25 20:17 650 MG Guaifenesin/ Dextromethorphan 10 ml Q4HP PRN PO 04/14/25 22:30 04/14/25 23:22 10 ML Acetylcysteine 100 mg Q8HR NEB 04/15/25 06:00 04/17/25 06:22 100 MG Albuterol 2.5 mg Q6HPRN PRN NEB 04/14/25 22:30 04/17/25 06:22 2.5 MG Doxycycline Hyclate 100 ml @ 50 mls/hr Q12H IV 04/16/25 18:00 04/17/25 06:03 50 MLS/HR Gabapentin 400 mg TID PO 04/16/25 22:00 04/17/25 06:03 400 MG Tramadol HCl 50 mg Q4HPRN PRN PO 04/16/25 14:30 04/17/25 07:04 50 MG Patient Own Medication 1 HS PO 04/16/25 22:00 04/16/25 22:51 1 Baclofen 20 mg Q8HR PO 04/16/25 15:00 04/17/25 06:02 20 MG Cefepime HCl 50 ml @ 12.5 mls/hr Q8H IV 04/17/25 09:00 04/17/25 09:01 12.5 MLS/HR Laboratory Results Laboratory Tests 04/17/25 06:15 Chemistry Test 04/17/25 06:15 Calcium Level 9.1 mg/dL (8.7-10.4) Urinalysis Test 04/14/25 15:17 Urine Color Yellow (Yellow) Urine Clarity Turbid (Clear) H Urine pH 7.0 (5.0-9.0) Urine Specific Ramsay 1.021 (1.001-1.035) Urine Protein 1+ (Negative) H Urine Ketones 3+ (Negative) H Urine Blood Negative /uL (Negative) Urine Nitrite 2+ (Negative) H Urine Bilirubin Negative (Negative) Urine Urobilinogen Normal mg/dL (Negative) Urine Leukocyte Esterase Negative /uL (Negative) Urine RBC 4 /hpf (0 - 4) Urine Microscopic WBC 10 /HPF (0-5) H Urine Squamous Epithelial Cells Few /hpf (<5) Urine Amorphous Crystals Few /hpf (None Seen) Urine Bacteria Few /hpf (None Seen) H Urine Mucus Few (None Seen) Urine Glucose Normal mg/dL (Normal) Microbiology Microbiology Date/Time Source Procedure Growth Status 04/14/25 15:29 Blood Blood Culture - Final Staphylococcus aureus Complete Assessment/Plan Assessment/Plan 04/15-patient has 10 year history of muscular sclerosis. She is bed-bound with chronic Mendoza and a baclofen pump subumbilical region. patient is seen in ER today. Patient is not speaking inadequate volume. Very low volume which might be baseline. She is able to breathe but has diffuse coarse rhonchi in bilateral lungs right > left. Patient is high-risk with immunocompromise in factors we will escalate antibiotics from ceftriaxone azithromycin 2 cefepime doxy. Patient also has blood cultures positive today with Gram-positive cocci. We will continue neck N-acetylcysteine. Patient cough is very thick neck is being tried if fails we will need pulmonology consult. We will increase patient's diet to puree. 04/16- patient small improvement compared to yesterday. She is able to speak more clearly. Still has very strong rhonchi bilaterally. Remains on high level oxygen Oxymizer 8 L saturating well in mid 90s. She is tolerating food with diet being puree and able to drink liquids. Significant other is at bedside today. Update is no neurologist only seeing pain legal support specialist. Per neurology has no further interventions to offer at this point and had approached patient with palliative/hospice. Patient remains full code. Pulmonology is consulted to eval for need for bronch. Antibiotics are broad cefepime/doxycycline. We will continue to treat patient with IV antibiotics. Other home medications are restarted for her pain and emesis spasms (scheduled baclofen, nortriptyline, gabapentin). if no improvement might need CT chest. Possible benefits with chest PT, defer to pulmonology. 04/17/2025 continue with iv abx. symptoms improving hypokalemia: replaced with 40 mEq Acute hypoxic respiratory failure Acute complicated multifocal pneumonia, Gram-negative Gram-positive likely Gram-positive bacteremia Sepsis due to above Neutrophilia Tachycardia Tachypnea Quadriplegia due to multiple sclerosis Chronic remitting relapsing multiple sclerosis Acute complicated UTI with chronic urinary Mendoza Plan discussed with: Patient Date of Service: Apr 17, 2025 Billing Provider: WILMER BURNS DO Common Visit Codes: [id number] INP/OBS CARE(HIGH) WILMER BURNS DO Apr 17, 2025 10:10
--- NOTE | 2025-04-17 22:59 | DVHPN2 ---
Progress Note - Dictate Date Seen: Apr 17, 2025 Medical Necessity Reason Pt with a Central, PICC or Fol: Yes The following are medically ne: Lopez Catheter Reason for lopez catheter: Strict I&O Subjective Patient seen and examined at bedside. Remains on supplemental oxygen Overnight events reviewed. vital signs Vital Sign Date Time Temp Pulse Resp B/P (MAP) Pulse Ox O2 Delivery O2 Flow Rate FiO2 04/17/25 21:59 107 16 97 04/17/25 21:50 Oxymizer 6.0 04/17/25 21:50 52 52 04/17/25 21:00 100.1 143/92 (109) 100.1 Total Intake and Output 04/16/25 04/16/25 04/17/25 15:00 23:00 07:00 Intake Total 50 ml 1525 ml 1350 ml Output Total 1175 ml 1150 ml Balance 50 ml 350 ml 200 ml medications Current Medications Medications Dose Ordered Sig/Oscar Route Start Time Stop Time Status Last Admin Dose Admin Albuterol 2.5 mg Q6HPRN PRN NEB 04/14/25 19:00 Cancel Acetaminophen/ Hydrocodone Bitart 1 tab Q4HP PRN PO 04/14/25 19:00 04/16/25 14:02 1 TAB Ondansetron HCl 4 mg Q4HP PRN IV 04/14/25 19:00 Enoxaparin Sodium 40 mg DAILY SC 04/15/25 10:00 04/17/25 09:01 40 MG Acetaminophen 650 mg Q6HP PRN PO 04/14/25 19:00 04/17/25 11:33 650 MG Guaifenesin/ Dextromethorphan 10 ml Q4HP PRN PO 04/14/25 22:30 04/14/25 23:22 10 ML Acetylcysteine 100 mg Q8HR NEB 04/15/25 06:00 04/17/25 21:49 100 MG Albuterol 2.5 mg Q6HPRN PRN NEB 04/14/25 22:30 04/17/25 21:49 2.5 MG Doxycycline Hyclate 100 ml @ 50 mls/hr Q12H IV 04/16/25 18:00 04/17/25 17:31 50 MLS/HR Gabapentin 400 mg TID PO 04/16/25 22:00 04/17/25 21:37 400 MG Tramadol HCl 50 mg Q4HPRN PRN PO 04/16/25 14:30 04/17/25 21:37 50 MG Patient Own Medication 1 HS PO 04/16/25 22:00 04/17/25 21:37 1 Baclofen 20 mg Q8HR PO 04/16/25 15:00 04/17/25 21:37 20 MG Cefepime HCl 50 ml @ 12.5 mls/hr Q8H IV 04/17/25 09:00 04/17/25 17:31 12.5 MLS/HR objective Gen.: Patient lying in bed in no apparent distress. On supplemental oxygen. Head: Normocephalic, atraumatic. Eyes: EOMI/PERRLA. Ears: Normal hearing. Normal anatomy. Neck/trachea: Trachea midline, supple. Nose: Normal external anatomy. Mouth: Moist mucous membranes. Chest: Decreased air entry bilaterally. No wheezing or rhonchi. Cardiovascular: Positive S1, positive S2. Regular rate and rhythm. Abdomen: Positive bowel sounds in all 4 quadrants. Soft, non-tender, non- distended. : Deferred. Rectal: Deferred. Skin: Warm, dry. Intact. Extremities: 2+ radial pulses bilaterally. No lower extremity edema. Neuro: Awake, alert, oriented x3. No gross motor or sensory deficits. Cranial nerves II through XII intact. Gait not assessed. laboratory and microbiology Laboratory Tests 04/17/25 06:15 Test 04/17/25 06:15 Range/Units Serum Glucose 100 74-106 mg/dL Assessment/Plan Impression: Acute hypoxemic respiratory failure Dependence on supplemental oxygen History of multiple sclerosis Pneumonia Pressure sores Events: Patient seen and examined Currently on 6 LPM oxygen via Oxymizer Taper O2 as tolerated Continue antibiotics Continue bronchodilators/Mucomyst Antitussive for cough. Lovenox for DVT ppx Wound care Labs and imaging reviewed Rest of plan as noted below Plan: Supplemental O2 Titrate to keep O2 sats above 92%. Incentive spirometry Aspiration precautions Recommend swallow eval Broad-spectrum antibiotics Deescalate based on cultures Wound care Pain control Avoid oversedation Monitor renal function. Monitor electrolytes. Supplement as necessary. Monitor ins and outs. DVT prophylaxis Prognosis: Poor given patient's multiple co-morbidities. Rest of plan per hospitalist and other consultants. Thank you Dr. Jackson for allowing me to participate in this patient's care. Further recommendations will depend on the patient's clinical course. Please do not hesitate to contact me if you have any questions or concerns. This medical document was created using an electronic medical record system with [employer] dictation system. Although these documentations are being carefully reviewed, there may still be some phonetic and typographical changes. The errors are purely typographical, due to imperfection on the software program, and do not reflect any compromise in the patient's medical care. Dietary Evaluation Review Comments: 1) Ensure Enlive 240ml TID 2) Chi 1 pk BID 3) Monitor wound healing, PO intake, lab values Expected Outcomes/Goals: wound to imrpove FU 3-5 days Plan discussed with: Patient, Other (RN Leon) RYAN TAYLOR MD Apr 17, 2025 22:59
[2025-04-18] VITALS (15 sets, daily range): BP systolic 100–149; BP diastolic 66–86; PULSE 70–114; RESP 16–18; TEMP 97.7–101; O2SAT 90–99
--- NOTE | 2025-04-18 12:56 | DVHPN2 ---
Reviewed: Care Plan, H&P, Labs, Previous Orders Changes from previous H/P or p: No Changes General: Per HPI Objective Vitals Vital Signs Date Time Temp Pulse Resp B/P (MAP) Pulse Ox O2 Delivery O2 Flow Rate FiO2 04/18/25 10:30 95 Oxymizer 6 N/A 04/18/25 09:00 97.8 101 16 124/74 (91) 97.8 Intake/Output Intake and Output 04/18/25 07:00 Intake Total 3200 ml Output Total 3300 ml Balance -100 ml Intake Oral 2850 ml IV Total 350 ml Output Urine Total 3300 ml # Bowel Movements 1 General Appearance: Alert, Oriented X3 Cardiovascular: Regular rate, Normal S1, Normal S2 Medications Current Medications Medications Dose Ordered Sig/Oscar Route Start Time Stop Time Status Last Admin Dose Admin Albuterol 2.5 mg Q6HPRN PRN NEB 04/14/25 19:00 Cancel Acetaminophen/ Hydrocodone Bitart 1 tab Q4HP PRN PO 04/14/25 19:00 04/18/25 09:37 1 TAB Ondansetron HCl 4 mg Q4HP PRN IV 04/14/25 19:00 Enoxaparin Sodium 40 mg DAILY SC 04/15/25 10:00 04/18/25 09:36 40 MG Acetaminophen 650 mg Q6HP PRN PO 04/14/25 19:00 04/17/25 11:33 650 MG Guaifenesin/ Dextromethorphan 10 ml Q4HP PRN PO 04/14/25 22:30 04/14/25 23:22 10 ML Acetylcysteine 100 mg Q8HR NEB 04/15/25 06:00 04/18/25 06:37 100 MG Albuterol 2.5 mg Q6HPRN PRN NEB 04/14/25 22:30 04/18/25 06:37 2.5 MG Doxycycline Hyclate 100 ml @ 50 mls/hr Q12H IV 04/16/25 18:00 04/18/25 07:05 50 MLS/HR Gabapentin 400 mg TID PO 04/16/25 22:00 04/18/25 06:37 400 MG Tramadol HCl 50 mg Q4HPRN PRN PO 04/16/25 14:30 04/18/25 06:36 50 MG Patient Own Medication 1 HS PO 04/16/25 22:00 04/17/25 21:37 1 Baclofen 20 mg Q8HR PO 04/16/25 15:00 04/18/25 06:36 20 MG Cefepime HCl 50 ml @ 12.5 mls/hr Q8H IV 04/17/25 09:00 04/18/25 09:37 12.5 MLS/HR Laboratory Results Laboratory Tests 04/17/25 06:15 Urinalysis Test 04/14/25 15:17 Urine Color Yellow (Yellow) Urine Clarity Turbid (Clear) H Urine pH 7.0 (5.0-9.0) Urine Specific [place] 1.021 (1.001-1.035) Urine Protein 1+ (Negative) H Urine Ketones 3+ (Negative) H Urine Blood Negative /uL (Negative) Urine Nitrite 2+ (Negative) H Urine Bilirubin Negative (Negative) Urine Urobilinogen Normal mg/dL (Negative) Urine Leukocyte Esterase Negative /uL (Negative) Urine RBC 4 /hpf (0 - 4) Urine Microscopic WBC 10 /HPF (0-5) H Urine Squamous Epithelial Cells Few /hpf (<5) Urine Amorphous Crystals Few /hpf (None Seen) Urine Bacteria Few /hpf (None Seen) H Urine Mucus Few (None Seen) Urine Glucose Normal mg/dL (Normal) Microbiology Microbiology Date/Time Source Procedure Growth Status 04/17/25 14:49 Sputum Gram Stain Pending Resulted 04/17/25 14:49 Sputum Respiratory Culture - Preliminary Resulted 04/14/25 15:29 Blood Blood Culture - Final Staphylococcus aureus Complete Assessment/Plan Assessment/Plan 04/15-patient has 10 year history of muscular sclerosis. She is bed-bound with chronic Mendoza and a baclofen pump subumbilical region. patient is seen in ER today. Patient is not speaking inadequate volume. Very low volume which might be baseline. She is able to breathe but has diffuse coarse rhonchi in bilateral lungs right > left. Patient is high-risk with immunocompromise in factors we will escalate antibiotics from ceftriaxone azithromycin 2 cefepime doxy. Patient also has blood cultures positive today with Gram-positive cocci. We will continue neck N-acetylcysteine. Patient cough is very thick neck is being tried if fails we will need pulmonology consult. We will increase patient's diet to puree. 04/16- patient small improvement compared to yesterday. She is able to speak more clearly. Still has very strong rhonchi bilaterally. Remains on high level oxygen Oxymizer 8 L saturating well in mid 90s. She is tolerating food with diet being puree and able to drink liquids. Significant other is at bedside today. Update is no neurologist only seeing pain business specialist. Per neurology has no further interventions to offer at this point and had approached patient with palliative/hospice. Patient remains full code. Pulmonology is consulted to eval for need for bronch. Antibiotics are broad cefepime/doxycycline. We will continue to treat patient with IV antibiotics. Other home medications are restarted for her pain and emesis spasms (scheduled baclofen, nortriptyline, gabapentin). if no improvement might need CT chest. Possible benefits with chest PT, defer to pulmonology. 04/17/2025 continue with iv abx. symptoms improving hypokalemia: replaced with 40 mEq 04/18/2025 continue with iv abx Acute hypoxic respiratory failure Acute complicated multifocal pneumonia, Gram-negative Gram-positive likely Gram-positive bacteremia Sepsis due to above Neutrophilia Tachycardia Tachypnea Quadriplegia due to multiple sclerosis Chronic remitting relapsing multiple sclerosis Acute complicated UTI with chronic urinary Mendoza Plan discussed with: Patient My Orders Orders - WILMER BURNS DO Procedure Category Date Status Time Nasal Tracheal Suction RT 04/17/25 Logged 14:30 Date of Service: Apr 18, 2025 Billing Provider: WILMER BURNS DO Common Visit Codes: [id number] INP/OBS CARE(HIGH) WILMER BURNS DO Apr 18, 2025 12:56
--- NOTE | 2025-04-18 23:48 | DVHPN2 ---
Progress Note - Dictate Date Seen: Apr 18, 2025 Medical Necessity Reason Pt with a Central, PICC or Fol: Yes The following are medically ne: Lopez Catheter Reason for lopez catheter: Strict I&O Subjective Patient seen and examined at bedside. Remains on supplemental oxygen Overnight events reviewed. vital signs Vital Sign Date Time Temp Pulse Resp B/P (MAP) Pulse Ox O2 Delivery O2 Flow Rate FiO2 04/18/25 22:30 70 16 94 04/18/25 22:20 Oxymizer 6 N/A 04/18/25 21:00 99.0 149/86 (107) 99.0 Total Intake and Output 04/17/25 04/17/25 04/18/25 15:00 23:00 07:00 Intake Total 150 ml 1400 ml 1650 ml Output Total 1500 ml 1800 ml Balance 150 ml -100 ml -150 ml medications Current Medications Medications Dose Ordered Sig/Oscar Route Start Time Stop Time Status Last Admin Dose Admin Albuterol 2.5 mg Q6HPRN PRN NEB 04/14/25 19:00 Cancel Acetaminophen/ Hydrocodone Bitart 1 tab Q4HP PRN PO 04/14/25 19:00 04/18/25 09:37 1 TAB Ondansetron HCl 4 mg Q4HP PRN IV 04/14/25 19:00 Enoxaparin Sodium 40 mg DAILY SC 04/15/25 10:00 04/18/25 09:36 40 MG Acetaminophen 650 mg Q6HP PRN PO 04/14/25 19:00 04/18/25 20:39 650 MG Guaifenesin/ Dextromethorphan 10 ml Q4HP PRN PO 04/14/25 22:30 04/14/25 23:22 10 ML Acetylcysteine 100 mg Q8HR NEB 04/15/25 06:00 04/18/25 22:25 100 MG Albuterol 2.5 mg Q6HPRN PRN NEB 04/14/25 22:30 04/18/25 22:25 2.5 MG Doxycycline Hyclate 100 ml @ 50 mls/hr Q12H IV 04/16/25 18:00 04/18/25 17:09 50 MLS/HR Gabapentin 400 mg TID PO 04/16/25 22:00 04/18/25 23:28 400 MG Tramadol HCl 50 mg Q4HPRN PRN PO 04/16/25 14:30 04/18/25 20:30 50 MG Patient Own Medication 1 HS PO 04/16/25 22:00 04/18/25 23:28 1 Baclofen 20 mg Q8HR PO 04/16/25 15:00 04/18/25 23:28 20 MG Cefepime HCl 50 ml @ 12.5 mls/hr Q8H IV 04/17/25 09:00 04/18/25 09:37 12.5 MLS/HR objective Gen.: Patient lying in bed in no apparent distress. On supplemental oxygen. Head: Normocephalic, atraumatic. Eyes: EOMI/PERRLA. Ears: Normal hearing. Normal anatomy. Neck/trachea: Trachea midline, supple. Nose: Normal external anatomy. Mouth: Moist mucous membranes. Chest: Decreased air entry bilaterally. No wheezing or rhonchi. Cardiovascular: Positive S1, positive S2. Regular rate and rhythm. Abdomen: Positive bowel sounds in all 4 quadrants. Soft, non-tender, non- distended. : Deferred. Rectal: Deferred. Skin: Warm, dry. Intact. Extremities: 2+ radial pulses bilaterally. No lower extremity edema. Neuro: Awake, alert, oriented x3. No gross motor or sensory deficits. Cranial nerves II through XII intact. Gait not assessed. laboratory and microbiology Laboratory Tests 04/17/25 06:15 Test 04/17/25 06:15 Range/Units Serum Glucose 100 74-106 mg/dL Assessment/Plan Impression: Acute hypoxemic respiratory failure Dependence on supplemental oxygen History of multiple sclerosis Pneumonia Pressure sores Events: Patient seen and examined On 6 LPM oxygen via Oxymizer Remains on same O2 requirements Taper O2 as tolerated No overnight events. Continue antibiotics Continue bronchodilators/Mucomyst Antitussive PRN for cough. Lovenox for DVT ppx Wound care Labs and imaging reviewed Rest of plan as noted below Plan: Supplemental O2 Titrate to keep O2 sats above 92%. Incentive spirometry HOB elevation/Aspiration precautions Broad-spectrum antibiotics Deescalate based on cultures Wound care Pain control Avoid oversedation Monitor renal function. Monitor electrolytes. Supplement as necessary. Monitor ins and outs. DVT prophylaxis - Lovenox Prognosis: Guarded given patient's multiple co-morbidities. Rest of plan per hospitalist and other consultants. Thank you Dr. Jackson for allowing me to participate in this patient's care. Further recommendations will depend on the patient's clinical course. Please do not hesitate to contact me if you have any questions or concerns. This medical document was created using an electronic medical record system with [employer] dictation system. Although these documentations are being carefully reviewed, there may still be some phonetic and typographical changes. The errors are purely typographical, due to imperfection on the software program, and do not reflect any compromise in the patient's medical care. Dietary Evaluation Review Comments: 1) Ensure Enlive 240ml TID 2) Chi 1 pk BID 3) Monitor wound healing, PO intake, lab values Expected Outcomes/Goals: wound to imrpove FU 3-5 days Plan discussed with: Patient, Other (JULIA Kerns) RYAN TAYLOR MD Apr 18, 2025 23:48
[2025-04-19] VITALS (14 sets, daily range): BP systolic 100–142; BP diastolic 64–87; PULSE 100–110; RESP 14–22; TEMP 98–100.4; O2SAT 91–100
--- NOTE | 2025-04-19 14:34 | DVHPN2 ---
Subjective Cough continues, patient communication volume is very low. She looks really sick. Reviewed: Care Plan, H&P, Labs, Previous Orders Changes from previous H/P or p: No Changes General: Per HPI Objective Vitals Vital Signs Date Time Temp Pulse Resp B/P (MAP) Pulse Ox O2 Delivery O2 Flow Rate FiO2 04/19/25 14:28 109 16 93 04/19/25 13:00 98.4 108/68 (81) 98.4 04/19/25 10:08 Oxymizer 6 N/A Intake/Output Intake and Output 04/19/25 07:00 Intake Total 2475 ml Output Total 4200 ml Balance -1725 ml Intake Oral 2325 ml IV Total 150 ml Output Urine Total 4200 ml Exam GEN: Healthy appearing, well-developed, NAD. HEENT: NC/AT; MMM. CV: RRR, no m/r/g. LUNGS: Bilateral bilateral rhonchi diffusely bilateral. Poor air movement bilaterally. ABD: Soft, NT/ND, NBS, no masses or organomegaly. EXT: skin Warm, well perfused. no rashes. No clubbing, cyanosis, or edema. NEURO: Ambulating with no limitations. No focal deficits. General Appearance: Alert, Oriented X3 Cardiovascular: Regular rate, Normal S1, Normal S2 Medications Current Medications Medications Dose Ordered Sig/Oscar Route Start Time Stop Time Status Last Admin Dose Admin Albuterol 2.5 mg Q6HPRN PRN NEB 04/14/25 19:00 Cancel Acetaminophen/ Hydrocodone Bitart 1 tab Q4HP PRN PO 04/14/25 19:00 04/18/25 09:37 1 TAB Ondansetron HCl 4 mg Q4HP PRN IV 04/14/25 19:00 Enoxaparin Sodium 40 mg DAILY SC 04/15/25 10:00 04/19/25 09:01 40 MG Acetaminophen 650 mg Q6HP PRN PO 04/14/25 19:00 04/19/25 03:54 650 MG Guaifenesin/ Dextromethorphan 10 ml Q4HP PRN PO 04/14/25 22:30 04/14/25 23:22 10 ML Acetylcysteine 100 mg Q8HR NEB 04/15/25 06:00 04/19/25 14:28 100 MG Albuterol 2.5 mg Q6HPRN PRN NEB 04/14/25 22:30 04/19/25 14:28 2.5 MG Doxycycline Hyclate 100 ml @ 50 mls/hr Q12H IV 04/16/25 18:00 04/19/25 06:05 50 MLS/HR Gabapentin 400 mg TID PO 04/16/25 22:00 04/19/25 06:06 400 MG Tramadol HCl 50 mg Q4HPRN PRN PO 04/16/25 14:30 04/19/25 10:23 50 MG Patient Own Medication 1 HS PO 04/16/25 22:00 04/18/25 23:28 1 Baclofen 20 mg Q8HR PO 04/16/25 15:00 04/19/25 06:06 20 MG Piperacillin Sod/ Tazobactam Sod 100 ml @ 25 mls/hr Q6HR IV 04/19/25 18:00 UNV Laboratory Results Laboratory Tests 04/17/25 06:15 Urinalysis Test 04/14/25 15:17 Urine Color Yellow (Yellow) Urine Clarity Turbid (Clear) H Urine pH 7.0 (5.0-9.0) Urine Specific [place] 1.021 (1.001-1.035) Urine Protein 1+ (Negative) H Urine Ketones 3+ (Negative) H Urine Blood Negative /uL (Negative) Urine Nitrite 2+ (Negative) H Urine Bilirubin Negative (Negative) Urine Urobilinogen Normal mg/dL (Negative) Urine Leukocyte Esterase Negative /uL (Negative) Urine RBC 4 /hpf (0 - 4) Urine Microscopic WBC 10 /HPF (0-5) H Urine Squamous Epithelial Cells Few /hpf (<5) Urine Amorphous Crystals Few /hpf (None Seen) Urine Bacteria Few /hpf (None Seen) H Urine Mucus Few (None Seen) Urine Glucose Normal mg/dL (Normal) Microbiology Microbiology Date/Time Source Procedure Growth Status 04/17/25 14:49 Sputum Gram Stain - Final Resulted 04/17/25 14:49 Sputum Respiratory Culture - Preliminary Resulted 04/14/25 15:29 Blood Blood Culture - Final Staphylococcus aureus Complete Labs and/or images reviewed: Labs reviewed by me, Image(s) reviewed by me Assessment/Plan Assessment/Plan 04/15-patient has 10 year history of muscular sclerosis. She is bed-bound with chronic Mendoza and a baclofen pump subumbilical region. patient is seen in ER today. Patient is not speaking inadequate volume. Very low volume which might be baseline. She is able to breathe but has diffuse coarse rhonchi in bilateral lungs right > left. Patient is high-risk with immunocompromise in factors we will escalate antibiotics from ceftriaxone azithromycin 2 cefepime doxy. Patient also has blood cultures positive today with Gram-positive cocci. We will continue neck N-acetylcysteine. Patient cough is very thick neck is being tried if fails we will need pulmonology consult. We will increase patient's diet to puree. 04/16- patient small improvement compared to yesterday. She is able to speak liver more clearly. Still has very strong rhonchi bilaterally. Remains on high level oxygen Oxymizer 8 L saturating well in mid . She is tolerating food with diet being puree and able to drink liquids. Significant other is at bedside today. Update is no neurologist only seeing pain orthopedic cast specialist. Per neurology has no further interventions to offer at this point and had approached patient with palliative/hospice. Patient remains full code. Pulmonology is consulted to eval for need for bronch. Antibiotics are broad cefepime/doxycycline. We will continue to treat patient with IV antibiotics. Other home medications are restarted for her pain and emesis spasms (scheduled baclofen, nortriptyline, gabapentin). if no improvement might need CT chest. Possible benefits with chest PT, defer to pulmonology. 04/17-04/18- patient continue treatment over the weekend. Patient is covered by covering provider. I do not notice any significant changes in management. 04/19- patient still on 6 L Oxymizer. She does not appear to be in acute respiratory distress or similar. On exam patient has continues to have rhonchi diffusely. Right lung lower lobe is almost no air movement compared to left which has very poor air movements. Patient remains on oxygen above home levels. We will get CT chest without con, follow up with palm, decrease antibiotics to Zosyn and doxycycline. Continue neck in urgent treatments.? Maybe patient also needs chest PT and and/or BiPAP. We will follow up with pulmonology Diagnosis: Acute hypoxic respiratory failure Acute complicated multifocal pneumonia, Gram-negative Gram-positive likely Gram-positive bacteremia Sepsis due to above Neutrophilia Tachycardia Tachypnea Quadriplegia due to multiple sclerosis Chronic remitting relapsing multiple sclerosis Acute complicated UTI with chronic urinary Mendoza Plan: - continue IV antibiotics Zosyn/doxycycline (prior doxycycline and cefepime. Prior was ceftriaxone and azithromycin ) - continue IV maintenance fluids - prn pain control p.o. and IV as needed - N-acetylcysteine inhalation treatments - pulmonology consulted, eval for need for bronchoscopy. - SP O2 goal more than 90% Pureed diet GI prophylaxis IV Protonix DVT prophylaxis-Lovenox Telemetry Full code Plan discussed with: Patient, Spouse My Orders Orders - KIRILL KEYES MD Procedure Category Date Status Time Chest Without Contrast CT 04/19/25 Logged 14:26 Piperacillin-Tazob PHA 04/19/25 Logged 3.375gm (Zosyn 3.375g 18:00 Complete Blood Count LAB 04/19/25 Verified 14:30 Basic Metabolic Panel LAB 04/19/25 Verified 14:30 Date of Service: Apr 19, 2025 Billing Provider: KIRILL KEYES MD Common Visit Codes: [id number] INP/OBS CARE(HIGH) KIRILL KEYES MD Apr 19, 2025 14:34
[2025-04-19 15:25] LABS: Hematocrit 37.8 % (36.0-46.0); Hemoglobin 12.5 g/dL (12.2-16.2); Mean Corpuscular Hemoglobin 27.5 pg (28.0-32.0); Mean Corpuscular Volume 82.8 fL (80.0-100.0); Nucleated Red Blood Cells % 0.1 %
[2025-04-19 15:35] LABS: Chloride 100 mmol/L (98-107); Potassium 4.4 mmol/L (3.5-5.1); Sodium 138 mmol/L (136-145)
[2025-04-19 15:36] LABS: Anion Gap 6 (5-15)
[2025-04-19 15:41] LABS: BUN/Creatinine Ratio 13.2 (10.0-20.0); Blood Urea Nitrogen 5 mg/dL (9-23); Calcium 8.2 mg/dL (8.7-10.4); Carbon Dioxide 32 mmol/L (20-31); Glucose 139 mg/dL (74-106)
[2025-04-19] MEDS: VANCOMYCIN 1GM/200ML PM 200 ML IV ONE (17:45)
[2025-04-19] MEDS: PIPERACILLIN-TAZOB 3.375GM 100 ML IV ONE (17:49)
[2025-04-19] MEDS: PIPERACILLIN-TAZOB 3.375GM 100 ML IV SCH (22:29)
--- NOTE | 2025-04-19 23:28 | DVHPN2 ---
Progress Note - Dictate Date Seen: Apr 19, 2025 Medical Necessity Reason Pt with a Central, PICC or Fol: Yes The following are medically ne: Lopez Catheter Reason for lopez catheter: Strict I&O Subjective Patient seen and examined at bedside. Remains on supplemental oxygen Overnight events reviewed. vital signs Vital Sign Date Time Temp Pulse Resp B/P (MAP) Pulse Ox O2 Delivery O2 Flow Rate FiO2 04/19/25 23:14 107 16 100 04/19/25 23:04 Oxymizer 6 N/A 04/19/25 17:00 99.0 128/87 (101) 99.0 Total Intake and Output 04/18/25 04/18/25 04/19/25 15:00 23:00 07:00 Intake Total 1125 ml 1350 ml Output Total 1650 ml 2550 ml Balance -525 ml -1200 ml medications Current Medications Medications Dose Ordered Sig/Oscar Route Start Time Stop Time Status Last Admin Dose Admin Albuterol 2.5 mg Q6HPRN PRN NEB 04/14/25 19:00 Cancel Acetaminophen/ Hydrocodone Bitart 1 tab Q4HP PRN PO 04/14/25 19:00 04/19/25 19:00 1 TAB Ondansetron HCl 4 mg Q4HP PRN IV 04/14/25 19:00 Enoxaparin Sodium 40 mg DAILY SC 04/15/25 10:00 04/19/25 09:01 40 MG Acetaminophen 650 mg Q6HP PRN PO 04/14/25 19:00 04/19/25 03:54 650 MG Guaifenesin/ Dextromethorphan 10 ml Q4HP PRN PO 04/14/25 22:30 04/14/25 23:22 10 ML Acetylcysteine 100 mg Q8HR NEB 04/15/25 06:00 04/19/25 23:04 100 MG Albuterol 2.5 mg Q6HPRN PRN NEB 04/14/25 22:30 04/19/25 23:03 2.5 MG Doxycycline Hyclate 100 ml @ 50 mls/hr Q12H IV 04/16/25 18:00 04/19/25 06:05 50 MLS/HR Gabapentin 400 mg TID PO 04/16/25 22:00 04/19/25 22:28 400 MG Tramadol HCl 50 mg Q4HPRN PRN PO 04/16/25 14:30 04/19/25 22:28 50 MG Patient Own Medication 1 HS PO 04/16/25 22:00 04/19/25 22:28 1 Baclofen 20 mg Q8HR PO 04/16/25 15:00 04/19/25 22:28 20 MG Piperacillin Sod/ Tazobactam Sod 100 ml @ 25 mls/hr Q8HR IV 04/19/25 22:00 04/19/25 22:29 25 MLS/HR objective Gen.: Patient lying in bed in no apparent distress. On supplemental oxygen. Head: Normocephalic, atraumatic. Eyes: EOMI/PERRLA. Ears: Normal hearing. Normal anatomy. Neck/trachea: Trachea midline, supple. Nose: Normal external anatomy. Mouth: Moist mucous membranes. Chest: Decreased air entry bilaterally. No wheezing or rhonchi. Cardiovascular: Positive S1, positive S2. Regular rate and rhythm. Abdomen: Positive bowel sounds in all 4 quadrants. Soft, non-tender, non- distended. : Deferred. Rectal: Deferred. Skin: Warm, dry. Intact. Extremities: 2+ radial pulses bilaterally. No lower extremity edema. Neuro: Awake, alert, oriented x3. No gross motor or sensory deficits. Cranial nerves II through XII intact. Gait not assessed. laboratory and microbiology Laboratory Tests 04/19/25 15:00 Test 04/19/25 15:00 Range/Units Serum Glucose 139 H 74-106 mg/dL Assessment/Plan Impression: Acute hypoxemic respiratory failure Dependence on supplemental oxygen History of multiple sclerosis Pneumonia Pressure sores Events: Patient seen and examined On 6 LPM oxygen via Oxymizer Remains on same O2 requirements Taper O2 as tolerated Midline placement today. CT chest performed; notable for multifocal pneumonia, RUL/RML/RLL consolidation. Follow up official CT chest report Head of bed elevation Aspiration precautions Gram positive pneumonia likely given MRSA bacteremia. Continue antibiotics - on Zosyn/doxycycline Consider starting vancomycin due to MRSA bacteremia. Continue bronchodilators/Mucomyst Antitussive PRN for cough. Lovenox for DVT ppx Wound care Labs and imaging reviewed Rest of plan as noted below Plan: Supplemental O2 Titrate to keep O2 sats above 92%. Incentive spirometry HOB elevation/Aspiration precautions Broad-spectrum antibiotics Deescalate based on cultures Wound care Pain control Avoid oversedation Monitor renal function. Monitor electrolytes. Supplement as necessary. Monitor ins and outs. DVT prophylaxis - Lovenox Prognosis: Guarded given patient's multiple co-morbidities. Rest of plan per hospitalist and other consultants. Thank you Dr. Jackson for allowing me to participate in this patient's care. Further recommendations will depend on the patient's clinical course. Please do not hesitate to contact me if you have any questions or concerns. This medical document was created using an electronic medical record system with [employer] dictation system. Although these documentations are being carefully reviewed, there may still be some phonetic and typographical changes. The errors are purely typographical, due to imperfection on the software program, and do not reflect any compromise in the patient's medical care. Dietary Evaluation Review Comments: 1) Ensure Enlive 240ml TID 2) Chi 1 pk BID 3) Monitor wound healing, PO intake, lab values Expected Outcomes/Goals: wound to imrpove FU 3-5 days Plan discussed with: Patient, Other (JULIA Sykes) RYAN TAYLOR MD Apr 19, 2025 23:28
[2025-04-19] MEDS: DOXYCYCLINE 100MG/100ML 100 ML IV SCH (23:45)
[2025-04-20] VITALS (14 sets, daily range): BP systolic 115–138; BP diastolic 69–81; PULSE 104–120; RESP 17–22; TEMP 97.7–99.3; O2SAT 87–97
--- NOTE | 2025-04-20 02:41 | DVH ---
Procedure: CT CHEST WITHOUT CONTRAST Reason for study/Clinical History: Pneumonia unresolving, shortness for breath with rhonchi Comparison Study: Chest x-ray 04/14/2025 Exam Date: 04/19/2025 03:16 PM TECHNIQUE: Multidetector CT of the chest was performed from the lung apices to the upper abdomen with out the use of intravenous contract. Axial, coronal and sagittal multiplanar reformats were performed . Radiation optimization: All CT scans at this facility use at least one of these dose optimization t echniques: automated exposure control mA and/or kV adjustment per patient size (includes targeted ex ams where dose is matched to clinical indication) or iterative reconstruction. Radiation Dose Information: CT Dose: CTDI volume is 16.04 mGy. Dose-length product is 535.47 mGy*cm The dose indicators for CT are the volume Computed Tomography (CT) Dose Index (CTDIvol) and the Dose Length Product (DLP), and are measured in units of mGy and mGy-cm, respectively. These indicators are not patient dose, but values generated from the CT scanner acquisition factors. The report includes radiation exposure data for exposures received during this examination. FINDINGS: Airway is patent. Thyroid gland appears unremarkable. There is consolidation with air bronchograms i n the right upper and right lower lobes as well as the left lower lobe. Additional scattered areas of nodular opacification are noted. Findings favor infectious etiology. No sizeable effusion or pneumo thorax. No pericardial effusion. Few prominent right hilar and mediastinal lymph nodes measuring up t o 0.8 cm in short axis. Imaged portions of the upper abdomen demonstrates cholecystectomy clips. No suspicious osseous lesion . IMPRESSION: 1. Bilateral areas of consolidation and airspace opacities favoring infectious process. No pleural ef fusion.
[2025-04-20 09:23] LABS: Hematocrit 34.9 % (36.0-46.0); Hemoglobin 11.8 g/dL (12.2-16.2); Mean Corpuscular Hemoglobin 27.5 pg (28.0-32.0); Mean Corpuscular Volume 81.6 fL (80.0-100.0); Nucleated Red Blood Cells % 0.0 %
--- NOTE | 2025-04-20 09:53 | DVHPN2 ---
Subjective Cough continues, patient communication volume is very low. She looks really sick. Reviewed: Care Plan, H&P, Labs, Previous Orders Changes from previous H/P or p: No Changes General: Per HPI Objective Vitals Vital Signs Date Time Temp Pulse Resp B/P (MAP) Pulse Ox O2 Delivery O2 Flow Rate FiO2 04/20/25 06:55 111 18 92 04/20/25 06:55 Oxymizer 6.0 04/20/25 06:55 N/A 04/20/25 05:00 98.1 115/69 (84) 98.1 Intake/Output Intake and Output 04/20/25 07:00 Intake Total 1830 ml Output Total 3550 ml Balance -1720 ml Intake Oral 1580 ml IV Total 250 ml Output Urine Total 3550 ml Exam GEN: Healthy appearing, well-developed, NAD. HEENT: NC/AT; MMM. CV: RRR, no m/r/g. LUNGS: Bilateral bilateral rhonchi diffusely bilateral. Poor air movement bilaterally. ABD: Soft, NT/ND, NBS, no masses or organomegaly. EXT: skin Warm, well perfused. no rashes. No clubbing, cyanosis, or edema. NEURO: Ambulating with no limitations. No focal deficits. General Appearance: Alert, Oriented X3 Cardiovascular: Regular rate, Normal S1, Normal S2 Medications Current Medications Medications Dose Ordered Sig/Oscar Route Start Time Stop Time Status Last Admin Dose Admin Albuterol 2.5 mg Q6HPRN PRN NEB 04/14/25 19:00 Cancel Acetaminophen/ Hydrocodone Bitart 1 tab Q4HP PRN PO 04/14/25 19:00 04/19/25 19:00 1 TAB Ondansetron HCl 4 mg Q4HP PRN IV 04/14/25 19:00 Enoxaparin Sodium 40 mg DAILY SC 04/15/25 10:00 04/19/25 09:01 40 MG Acetaminophen 650 mg Q6HP PRN PO 04/14/25 19:00 04/19/25 03:54 650 MG Guaifenesin/ Dextromethorphan 10 ml Q4HP PRN PO 04/14/25 22:30 04/14/25 23:22 10 ML Acetylcysteine 100 mg Q8HR NEB 04/15/25 06:00 04/20/25 06:49 100 MG Albuterol 2.5 mg Q6HPRN PRN NEB 04/14/25 22:30 04/20/25 06:49 2.5 MG Gabapentin 400 mg TID PO 04/16/25 22:00 04/20/25 05:49 400 MG Tramadol HCl 50 mg Q4HPRN PRN PO 04/16/25 14:30 04/20/25 05:59 50 MG Patient Own Medication 1 HS PO 04/16/25 22:00 04/19/25 22:28 1 Baclofen 20 mg Q8HR PO 04/16/25 15:00 04/20/25 05:49 20 MG Piperacillin Sod/ Tazobactam Sod 100 ml @ 25 mls/hr Q8HR IV 04/19/25 22:00 04/20/25 05:49 25 MLS/HR Doxycycline Hyclate 100 ml @ 50 mls/hr Q12H IV 04/19/25 23:45 Laboratory Results Laboratory Tests 04/19/25 15:00 04/20/25 09:05 Chemistry Test 04/19/25 15:00 Calcium Level 8.2 mg/dL (8.7-10.4) L Urinalysis Test 04/14/25 15:17 Urine Color Yellow (Yellow) Urine Clarity Turbid (Clear) H Urine pH 7.0 (5.0-9.0) Urine Specific [place] 1.021 (1.001-1.035) Urine Protein 1+ (Negative) H Urine Ketones 3+ (Negative) H Urine Blood Negative /uL (Negative) Urine Nitrite 2+ (Negative) H Urine Bilirubin Negative (Negative) Urine Urobilinogen Normal mg/dL (Negative) Urine Leukocyte Esterase Negative /uL (Negative) Urine RBC 4 /hpf (0 - 4) Urine Microscopic WBC 10 /HPF (0-5) H Urine Squamous Epithelial Cells Few /hpf (<5) Urine Amorphous Crystals Few /hpf (None Seen) Urine Bacteria Few /hpf (None Seen) H Urine Mucus Few (None Seen) Urine Glucose Normal mg/dL (Normal) Microbiology Microbiology Date/Time Source Procedure Growth Status 04/17/25 14:49 Sputum Gram Stain - Final Resulted 04/17/25 14:49 Sputum Respiratory Culture - Preliminary Resulted 04/14/25 15:29 Blood Blood Culture - Final Staphylococcus aureus Complete Labs and/or images reviewed: Labs reviewed by me, Image(s) reviewed by me Assessment/Plan Assessment/Plan 04/15-patient has 10 year history of muscular sclerosis. She is bed-bound with chronic Mendoza and a baclofen pump subumbilical region. patient is seen in ER today. Patient is not speaking inadequate volume. Very low volume which might be baseline. She is able to breathe but has diffuse coarse rhonchi in bilateral lungs right > left. Patient is high-risk with immunocompromise in factors we will escalate antibiotics from ceftriaxone azithromycin 2 cefepime doxy. Patient also has blood cultures positive today with Gram-positive cocci. We will continue neck N-acetylcysteine. Patient cough is very thick neck is being tried if fails we will need pulmonology consult. We will increase patient's diet to puree. 04/16- patient small improvement compared to yesterday. She is able to speak liver more clearly. Still has very strong rhonchi bilaterally. Remains on high level oxygen Oxymizer 8 L saturating well in mid 90s. She is tolerating food with diet being puree and able to drink liquids. Significant other is at bedside today. Update is no neurologist only seeing pain geoscience specialist. Per neurology has no further interventions to offer at this point and had approached patient with palliative/hospice. Patient remains full code. Pulmonology is consulted to eval for need for bronch. Antibiotics are broad cefepime/doxycycline. We will continue to treat patient with IV antibiotics. Other home medications are restarted for her pain and emesis spasms (scheduled baclofen, nortriptyline, gabapentin). if no improvement might need CT chest. Possible benefits with chest PT, defer to pulmonology. 04/17-04/18- patient continue treatment over the weekend. Patient is covered by covering provider. I do not notice any significant changes in management. 04/19- patient still on 6 L Oxymizer. She does not appear to be in acute respiratory distress or similar. On exam patient has continues to have rhonchi diffusely. Right lung lower lobe is almost no air movement compared to left which has very poor air movements. Patient remains on oxygen above home levels. We will get CT chest without con, follow up with palm, decrease antibiotics to Zosyn and doxycycline. Continue neck in urgent treatments.? Maybe patient also needs chest PT and and/or BiPAP. We will follow up with pulmonology 04/20- patient is feeling much better but right lower lobe is not elevated no lung sounds. We will continue IV antibiotics Zosyn doxycycline. We will trial steroids IV, IV Lasix, BiPAP 4 hours, duo nebs b.i.d. scheduled. We will give incentive spirometer. Appreciate pulmonology follow up. Plan to try to wean oxygen to goal 90-92% oxygen saturation. Possible DC tomorrow with home oxygen if able to wean down. Patient has MSSA bacteremia, blood cultures were not repeated we will get that today. Diagnosis: Acute hypoxic respiratory failure Acute complicated multifocal pneumonia, Gram-negative Gram-positive likely Gram-positive bacteremia MSSA bacteremia Sepsis due to above Neutrophilia Tachycardia Tachypnea Quadriplegia due to multiple sclerosis Chronic remitting relapsing multiple sclerosis Acute complicated UTI with chronic urinary Mendoza Plan: - continue IV antibiotics Zosyn/doxycycline (prior doxycycline and cefepime. Prior was ceftriaxone and azithromycin ) - continue IV maintenance fluids - prn pain control p.o. and IV as needed - N-acetylcysteine inhalation treatments - pulmonology consulted, eval for need for bronchoscopy. - SP O2 goal more than 90% Pureed diet GI prophylaxis IV Protonix DVT prophylaxis-Lovenox Telemetry Full code Plan discussed with: Patient My Orders Orders - KIRILL KEYES MD Procedure Category Date Status Time Chest Without Contrast CT 04/19/25 Resulted 14:26 Piperacillin-Tazob PHA 04/19/25 In Process 3.375gm (Zosyn 3.375g 22:00 Doxycycline PHA 04/19/25 In Process 100mg/100ml 23:45 Date of Service: Apr 20, 2025 Billing Provider: KIRILL KEYES MD, FARIQ MD Apr 20, 2025 09:53
[2025-04-20] MEDS: methylPREDNISolone SOD SUCC 40 MG/ML VL IV ONE (10:43)
[2025-04-20] MEDS: FUROSEMIDE 40 MG/4 ML VIAL IV ONE (10:43)
[2025-04-20] MEDS: ALBUTEROL SULF 2.5 MG/0.5ML(0.5%) NEB SOLN NEB SCH (14:05)
[2025-04-20] MEDS: IPRATROPIUM BROM 0.5 MG/2.5ML INH SOL NEB SCH (14:05)
[2025-04-20] MEDS: methylPREDNISolone SOD SUCC 40 MG/ML VL IV SCH (22:41)
--- NOTE | 2025-04-20 23:11 | DVHPN2 ---
Progress Note - Dictate Date Seen: Apr 20, 2025 Medical Necessity Reason Pt with a Central, PICC or Fol: Yes The following are medically ne: Lopez Catheter Reason for lopez catheter: Strict I&O Subjective Patient seen and examined at bedside. Remains on supplemental oxygen Overnight events reviewed. vital signs Vital Sign Date Time Temp Pulse Resp B/P (MAP) Pulse Ox O2 Delivery O2 Flow Rate FiO2 04/20/25 21:55 118 20 96 04/20/25 21:45 Oxymizer 6 N/A 04/20/25 21:42 138/76 04/20/25 21:00 99.3 99.3 Total Intake and Output 04/19/25 04/19/25 04/20/25 15:00 23:00 07:00 Intake Total 100 ml 1130 ml 600 ml Output Total 1850 ml 1700 ml Balance 100 ml -720 ml -1100 ml medications Current Medications Medications Dose Ordered Sig/Oscar Route Start Time Stop Time Status Last Admin Dose Admin Albuterol 2.5 mg Q6HPRN PRN NEB 04/14/25 19:00 Cancel Acetaminophen/ Hydrocodone Bitart 1 tab Q4HP PRN PO 04/14/25 19:00 04/19/25 19:00 1 TAB Ondansetron HCl 4 mg Q4HP PRN IV 04/14/25 19:00 Enoxaparin Sodium 40 mg DAILY SC 04/15/25 10:00 04/20/25 09:50 40 MG Acetaminophen 650 mg Q6HP PRN PO 04/14/25 19:00 04/19/25 03:54 650 MG Guaifenesin/ Dextromethorphan 10 ml Q4HP PRN PO 04/14/25 22:30 04/14/25 23:22 10 ML Acetylcysteine 100 mg Q8HR NEB 04/15/25 06:00 04/20/25 21:45 100 MG Albuterol 2.5 mg Q6HPRN PRN NEB 04/14/25 22:30 04/20/25 06:49 2.5 MG Gabapentin 400 mg TID PO 04/16/25 22:00 04/20/25 22:41 400 MG Tramadol HCl 50 mg Q4HPRN PRN PO 04/16/25 14:30 04/20/25 22:56 50 MG Patient Own Medication 1 HS PO 04/16/25 22:00 7/1/25 22:42 1 Baclofen 20 mg Q8HR PO 04/16/25 15:00 04/20/25 22:41 20 MG Piperacillin Sod/ Tazobactam Sod 100 ml @ 25 mls/hr Q8HR IV 04/19/25 22:00 04/20/25 22:41 25 MLS/HR Doxycycline Hyclate 100 ml @ 50 mls/hr Q12H IV 04/19/25 23:45 04/20/25 12:06 50 MLS/HR Ipratropium [place] 0.5 mg Q8HR NEB 04/20/25 14:00 04/20/25 21:45 0.5 MG Albuterol 2.5 mg Q8HR NEB 04/20/25 14:00 04/20/25 21:45 2.5 MG Methylprednisolone Sodium Succinate 40 mg Q8HR IV 04/20/25 22:00 04/20/25 22:41 40 MG objective Gen.: Patient lying in bed in no apparent distress. On supplemental oxygen. Head: Normocephalic, atraumatic. Eyes: EOMI/PERRLA. Ears: Normal hearing. Normal anatomy. Neck/trachea: Trachea midline, supple. Nose: Normal external anatomy. Mouth: Moist mucous membranes. Chest: Decreased air entry bilaterally. No wheezing or rhonchi. Cardiovascular: Positive S1, positive S2. Regular rate and rhythm. Abdomen: Positive bowel sounds in all 4 quadrants. Soft, non-tender, non- distended. : Deferred. Rectal: Deferred. Skin: Warm, dry. Intact. Extremities: 2+ radial pulses bilaterally. No lower extremity edema. Neuro: Awake, alert, oriented x3. No gross motor or sensory deficits. Cranial nerves II through XII intact. Gait not assessed. laboratory and microbiology Laboratory Tests 04/20/25 09:05 04/19/25 15:00 Test 04/19/25 15:00 Range/Units Serum Glucose 139 H 74-106 mg/dL Assessment/Plan Impression: Acute hypoxemic respiratory failure Dependence on supplemental oxygen History of multiple sclerosis Pneumonia Pressure sores Events: Patient seen and examined On 6 LPM via Oxymizer Remains on same O2 requirements Taper O2 as tolerated S/p midline placement yesterday. CT chest on 04/19 notable for multifocal pneumonia, RUL/RML/RLL consolidation. No pleural effusion. Head of bed elevation Aspiration precautions Gram positive pneumonia likely given MRSA bacteremia. Continue antibiotics - on Zosyn/doxycycline Consider starting vancomycin due to MRSA bacteremia. Bronchodilators scheduled Mucomyst Recommend IV steroids Antitussive PRN for cough. Lovenox for DVT ppx Wound care Labs and imaging reviewed Rest of plan as noted below Plan: Supplemental O2 Titrate to keep O2 sats above 92%. Incentive spirometry HOB elevation/Aspiration precautions Broad-spectrum antibiotics Deescalate based on cultures Wound care Pain control Avoid oversedation Monitor renal function. Monitor electrolytes. Supplement as necessary. Monitor ins and outs. DVT prophylaxis - Lovenox Prognosis: Guarded given patient's multiple co-morbidities. Rest of plan per hospitalist and other consultants. Thank you Dr. Jackson for allowing me to participate in this patient's care. Further recommendations will depend on the patient's clinical course. Please do not hesitate to contact me if you have any questions or concerns. This medical document was created using an electronic medical record system with [employer] dictation system. Although these documentations are being carefully reviewed, there may still be some phonetic and typographical changes. The errors are purely typographical, due to imperfection on the software program, and do not reflect any compromise in the patient's medical care. Dietary Evaluation Review Comments: 1) Ensure Enlive 240ml TID 2) Chi 1 pk BID 3) Monitor wound healing, PO intake, lab values Expected Outcomes/Goals: wound to imrpove FU 3-5 days Plan discussed with: Patient, Other (JULIA Loredo) RYAN TAYLOR MD Apr 20, 2025 23:11
[2025-04-21] VITALS (14 sets, daily range): BP systolic 105–134; BP diastolic 62–86; PULSE 103–127; RESP 17–86; TEMP 98–99; O2SAT 90–98
[2025-04-21 06:36] LABS: Hemoglobin 12.8 g/dL (12.2-16.2)
[2025-04-21 06:39] LABS: Hematocrit 38.3 % (36.0-46.0); Mean Corpuscular Hemoglobin 27.4 pg (28.0-32.0); Mean Corpuscular Volume 82.0 fL (80.0-100.0); Nucleated Red Blood Cells % 0.0 %
[2025-04-21] MEDS ORDERED: LACTULOSE 20Gm/30ML SOLN PO ONE (12:30)
[2025-04-21] MEDS: LACTULOSE 20Gm/30ML SOLN PO PRN (12:49)
--- NOTE | 2025-04-21 15:10 | DVHPN2 ---
Subjective Cough continues, patient communication volume is very low. She looks really sick. Reviewed: Care Plan, H&P, Labs, Previous Orders Changes from previous H/P or p: No Changes General: Per HPI Objective Vitals Vital Signs Date Time Temp Pulse Resp B/P (MAP) Pulse Ox O2 Delivery O2 Flow Rate FiO2 04/21/25 14:18 108 18 94 04/21/25 14:11 Oxymizer 6.0 04/21/25 14:11 N/A 04/21/25 13:00 98.2 105/62 (76) 98.2 Intake/Output Intake and Output 04/21/25 07:00 Intake Total 1760 ml Output Total 4375 ml Balance -2615 ml Intake Oral 1560 ml IV Total 200 ml Output Urine Total 4375 ml Exam GEN: Healthy appearing, well-developed, NAD. HEENT: NC/AT; MMM. CV: RRR, no m/r/g. LUNGS: Bilateral bilateral rhonchi diffusely bilateral. Poor air movement bilaterally. ABD: Soft, NT/ND, NBS, no masses or organomegaly. EXT: skin Warm, well perfused. no rashes. No clubbing, cyanosis, or edema. NEURO: Ambulating with no limitations. No focal deficits. General Appearance: Alert, Oriented X3 Cardiovascular: Regular rate, Normal S1, Normal S2 Medications Current Medications Medications Dose Ordered Sig/Oscar Route Start Time Stop Time Status Last Admin Dose Admin Albuterol 2.5 mg Q6HPRN PRN NEB 04/14/25 19:00 Cancel Acetaminophen/ Hydrocodone Bitart 1 tab Q4HP PRN PO 04/14/25 19:00 04/19/25 19:00 1 TAB Ondansetron HCl 4 mg Q4HP PRN IV 04/14/25 19:00 Enoxaparin Sodium 40 mg DAILY SC 04/15/25 10:00 04/21/25 10:15 40 MG Acetaminophen 650 mg Q6HP PRN PO 04/14/25 19:00 04/19/25 03:54 650 MG Guaifenesin/ Dextromethorphan 10 ml Q4HP PRN PO 04/14/25 22:30 04/14/25 23:22 10 ML Acetylcysteine 100 mg Q8HR NEB 04/15/25 06:00 04/21/25 14:06 100 MG Albuterol 2.5 mg Q6HPRN PRN NEB 04/14/25 22:30 04/20/25 06:49 2.5 MG Gabapentin 400 mg TID PO 04/16/25 22:00 04/21/25 14:53 400 MG Tramadol HCl 50 mg Q4HPRN PRN PO 04/16/25 14:30 04/21/25 05:21 50 MG Patient Own Medication 1 HS PO 04/16/25 22:00 04/20/25 22:42 1 Baclofen 20 mg Q8HR PO 04/16/25 15:00 04/21/25 14:53 20 MG Piperacillin Sod/ Tazobactam Sod 100 ml @ 25 mls/hr Q8HR IV 04/19/25 22:00 04/21/25 14:53 25 MLS/HR Doxycycline Hyclate 100 ml @ 50 mls/hr Q12H IV 04/19/25 23:45 04/21/25 12:49 50 MLS/HR Ipratropium [place] 0.5 mg Q8HR NEB 04/20/25 14:00 04/21/25 14:06 0.5 MG Albuterol 2.5 mg Q8HR NEB 04/20/25 14:00 04/21/25 14:06 2.5 MG Methylprednisolone Sodium Succinate 40 mg Q8HR IV 04/20/25 22:00 04/21/25 14:53 40 MG Lactulose 15 ml BID PRN PO 04/21/25 12:30 04/21/25 12:49 15 ML Laboratory Results Laboratory Tests 04/19/25 15:00 04/21/25 05:26 Urinalysis Test 04/14/25 15:17 Urine Color Yellow (Yellow) Urine Clarity Turbid (Clear) H Urine pH 7.0 (5.0-9.0) Urine Specific [place] 1.021 (1.001-1.035) Urine Protein 1+ (Negative) H Urine Ketones 3+ (Negative) H Urine Blood Negative /uL (Negative) Urine Nitrite 2+ (Negative) H Urine Bilirubin Negative (Negative) Urine Urobilinogen Normal mg/dL (Negative) Urine Leukocyte Esterase Negative /uL (Negative) Urine RBC 4 /hpf (0 - 4) Urine Microscopic WBC 10 /HPF (0-5) H Urine Squamous Epithelial Cells Few /hpf (<5) Urine Amorphous Crystals Few /hpf (None Seen) Urine Bacteria Few /hpf (None Seen) H Urine Mucus Few (None Seen) Urine Glucose Normal mg/dL (Normal) Microbiology Microbiology Date/Time Source Procedure Growth Status 04/20/25 10:40 Blood Blood Culture - Preliminary NO GROWTH AFTER 24 HOURS OF INCUBATION. Resulted 04/17/25 14:49 Sputum Gram Stain - Final Resulted 04/17/25 14:49 Sputum Respiratory Culture - Preliminary Resulted Labs and/or images reviewed: Labs reviewed by me, Image(s) reviewed by me Assessment/Plan Assessment/Plan 04/15-patient has 10 year history of muscular sclerosis. She is bed-bound with chronic Mendoza and a baclofen pump subumbilical region. patient is seen in ER today. Patient is not speaking inadequate volume. Very low volume which might be baseline. She is able to breathe but has diffuse coarse rhonchi in bilateral lungs right > left. Patient is high-risk with immunocompromise in factors we will escalate antibiotics from ceftriaxone azithromycin 2 cefepime doxy. Patient also has blood cultures positive today with Gram-positive cocci. We will continue neck N-acetylcysteine. Patient cough is very thick neck is being tried if fails we will need pulmonology consult. We will increase patient's diet to puree. 04/16- patient small improvement compared to yesterday. She is able to speak liver more clearly. Still has very strong rhonchi bilaterally. Remains on high level oxygen Oxymizer 8 L saturating well in mid 90s. She is tolerating food with diet being puree and able to drink liquids. Significant other is at bedside today. Update is no neurologist only seeing pain field marketing specialist. Per neurology has no further interventions to offer at this point and had approached patient with palliative/hospice. Patient remains full code. Pulmonology is consulted to eval for need for bronch. Antibiotics are broad cefepime/doxycycline. We will continue to treat patient with IV antibiotics. Other home medications are restarted for her pain and emesis spasms (scheduled baclofen, nortriptyline, gabapentin). if no improvement might need CT chest. Possible benefits with chest PT, defer to pulmonology. 04/17-04/18- patient continue treatment over the weekend. Patient is covered by covering provider. I do not notice any significant changes in management. 04/19- patient still on 6 L Oxymizer. She does not appear to be in acute respiratory distress or similar. On exam patient has continues to have rhonchi diffusely. Right lung lower lobe is almost no air movement compared to left which has very poor air movements. Patient remains on oxygen above home levels. We will get CT chest without con, follow up with palm, decrease antibiotics to Zosyn and doxycycline. Continue neck in urgent treatments.? Maybe patient also needs chest PT and and/or BiPAP. We will follow up with pulmonology 04/20- patient is feeling much better but right lower lobe is not elevated no lung sounds. We will continue IV antibiotics Zosyn doxycycline. We will trial steroids IV, IV Lasix, BiPAP 4 hours, duo nebs b.i.d. scheduled. We will give incentive spirometer. Appreciate pulmonology follow up. Plan to try to wean oxygen to goal 90-92% oxygen saturation. Possible DC tomorrow with home oxygen if able to wean down. Patient has MSSA bacteremia, blood cultures were not repeated we will get that today. 04/21- patient is feeling well back to her baseline but remains on 6 L Oxymizer. Lung air movements is better and minimally noticeable on the right lower lobe. Repeat blood cultures are negative now. Patient appears to be tachycardic she will need telemetry to assess degree of tachycardia. We will start telemetry today. Continue broad-spectrum antibiotics Zosyn and doxycycline. Pulmonology following along in his started Solu-Medrol 40 t.i.d.. We are giving her scheduled duo nebs. We will hold off further Lasix trial like yesterday due to tachycardia. She is taking small sips of water throughout the day drinking approximately 1-2 L. we will start BiPAP trials 3-4 hours nightly after dinner. RN plan discussed and we will try to wean oxygen to best ability. Pulmonology has ordered weaned to oxygen saturation > 92%. Out of precaution we will start Diflucan. Diagnosis: Acute hypoxic respiratory failure Acute complicated multifocal pneumonia, Gram-negative Gram-positive likely Gram-positive bacteremia MSSA bacteremia Sepsis due to above Neutrophilia Tachycardia Tachypnea Quadriplegia due to multiple sclerosis Chronic remitting relapsing multiple sclerosis Acute complicated UTI with chronic urinary Mendoza Thrombocytosis Plan: - continue IV antibiotics Zosyn/doxycycline (prior doxycycline and cefepime. Prior was ceftriaxone and azithromycin ) - continue IV maintenance fluids - prn pain control p.o. and IV as needed - N-acetylcysteine inhalation treatments - pulmonology consulted, eval for need for bronchoscopy. - SP O2 goal more than 90% Pureed diet GI prophylaxis IV Protonix DVT prophylaxis-Lovenox Telemetry Full code Plan discussed with: Patient My Orders Orders - KIRILL KEYES MD Procedure Category Date Status Time Transfer Orders XFER 04/21/25 Transmitted 09:33 Lactulose Oral PHA 04/21/25 In Process 12:30 BIPAP RT 04/21/25 Logged 15:00 Date of Service: Apr 21, 2025 Billing Provider: KIRILL KEYES MD Common Visit Codes: [id number] INP/OBS CARE(HIGH) KIRILL KEYES MD Apr 21, 2025 15:10
[2025-04-21] MEDS: FLUCONAZOLE 200MG/100ML 100 ML IV SCH (19:04)
--- NOTE | 2025-04-21 23:56 | DVHPN2 ---
Progress Note - Dictate Date Seen: Apr 21, 2025 Medical Necessity Reason Pt with a Central, PICC or Fol: Yes The following are medically ne: Lopez Catheter Reason for lopez catheter: Strict I&O Subjective Patient seen and examined at bedside. Remains on supplemental oxygen Overnight events reviewed. vital signs Vital Sign Date Time Temp Pulse Resp B/P (MAP) Pulse Ox O2 Delivery O2 Flow Rate FiO2 04/21/25 22:41 120 20 95 04/21/25 22:31 Room Air* 0 N/A Oxymizer 04/21/25 17:00 98.7 121/73 (89) 98.7 Total Intake and Output 04/20/25 04/20/25 04/21/25 15:00 23:00 07:00 Intake Total 200 ml 860 ml 700 ml Output Total 3175 ml 1200 ml Balance 200 ml -2315 ml -500 ml medications Current Medications Medications Dose Ordered Sig/Oscar Route Start Time Stop Time Status Last Admin Dose Admin Albuterol 2.5 mg Q6HPRN PRN NEB 04/14/25 19:00 Cancel Acetaminophen/ Hydrocodone Bitart 1 tab Q4HP PRN PO 04/14/25 19:00 04/19/25 19:00 1 TAB Ondansetron HCl 4 mg Q4HP PRN IV 04/14/25 19:00 Enoxaparin Sodium 40 mg DAILY SC 04/15/25 10:00 04/21/25 10:15 40 MG Acetaminophen 650 mg Q6HP PRN PO 04/14/25 19:00 04/19/25 03:54 650 MG Guaifenesin/ Dextromethorphan 10 ml Q4HP PRN PO 04/14/25 22:30 04/14/25 23:22 10 ML Acetylcysteine 100 mg Q8HR NEB 04/15/25 06:00 04/21/25 22:31 100 MG Albuterol 2.5 mg Q6HPRN PRN NEB 04/14/25 22:30 04/20/25 06:49 2.5 MG Gabapentin 400 mg TID PO 04/16/25 22:00 04/21/25 21:24 400 MG Tramadol HCl 50 mg Q4HPRN PRN PO 04/16/25 14:30 04/21/25 21:52 50 MG Patient Own Medication 1 HS PO 04/16/25 22:00 04/21/25 21:25 1 Baclofen 20 mg Q8HR PO 04/16/25 15:00 04/21/25 21:24 20 MG Piperacillin Sod/ Tazobactam Sod 100 ml @ 25 mls/hr Q8HR IV 04/19/25 22:00 04/21/25 21:23 25 MLS/HR Doxycycline Hyclate 100 ml @ 50 mls/hr Q12H IV 04/19/25 23:45 04/21/25 12:49 50 MLS/HR Ipratropium [place] 0.5 mg Q8HR NEB 04/20/25 14:00 04/21/25 22:31 0.5 MG Albuterol 2.5 mg Q8HR NEB 04/20/25 14:00 04/21/25 22:31 2.5 MG Lactulose 15 ml BID PRN PO 04/21/25 12:30 04/21/25 12:49 15 ML Fluconazole 100 ml @ 100 mls/hr 10,11 IV 04/22/25 10:00 Methylprednisolone Sodium Succinate 40 mg Q12HR IV 04/21/25 22:00 objective Gen.: Patient lying in bed in no apparent distress. On supplemental oxygen. Head: Normocephalic, atraumatic. Eyes: EOMI/PERRLA. Ears: Normal hearing. Normal anatomy. Neck/trachea: Trachea midline, supple. Nose: Normal external anatomy. Mouth: Moist mucous membranes. Chest: Decreased air entry bilaterally. No wheezing or rhonchi. Cardiovascular: Positive S1, positive S2. Regular rate and rhythm. Abdomen: Positive bowel sounds in all 4 quadrants. Soft, non-tender, non- distended. : Deferred. Rectal: Deferred. Skin: Warm, dry. Intact. Extremities: 2+ radial pulses bilaterally. No lower extremity edema. Neuro: Awake, alert, oriented x3. No gross motor or sensory deficits. Cranial nerves II through XII intact. Gait not assessed. laboratory and microbiology Laboratory Tests 04/21/25 05:26 04/19/25 15:00 Test 04/19/25 15:00 Range/Units Serum Glucose 139 H 74-106 mg/dL Assessment/Plan Impression: Acute hypoxemic respiratory failure Dependence on supplemental oxygen History of multiple sclerosis Pneumonia, likely gram positive given MRSA bacteremia Pressure sores Events: Improving O2 requirements Currently on 2 LPM NC (tapered from 6 LPM via Oxymizer) Continue to taper O2 as tolerated Head of bed elevation Aspiration precautions Continue antibiotics - on Zosyn/doxycycline WBC within normal limits Continue antifungal Bronchodilators scheduled Complete steroid course. Taper IV steroids to q.12 hours Antitussive PRN for cough. Improved oxygen requirements. Patient is stable for discharge from the pulmonary standpoint if she remains on 4 LPM NC or less. Lovenox for DVT ppx Wound care CT chest on 04/19 notable for multifocal pneumonia, RUL/RML/RLL consolidation. No pleural effusion. Labs and imaging reviewed Rest of plan as noted below Plan: Supplemental O2 Titrate to keep O2 sats above 92%. Incentive spirometry HOB elevation/Aspiration precautions Broad-spectrum antibiotics Deescalate based on cultures Wound care Pain control Avoid oversedation Monitor renal function. Monitor electrolytes. Supplement as necessary. Monitor ins and outs. DVT prophylaxis - Lovenox Prognosis: Guarded given patient's multiple co-morbidities. Rest of plan per hospitalist and other consultants. Thank you Dr. Jackson for allowing me to participate in this patient's care. Further recommendations will depend on the patient's clinical course. Please do not hesitate to contact me if you have any questions or concerns. This medical document was created using an electronic medical record system with [employer] dictation system. Although these documentations are being carefully reviewed, there may still be some phonetic and typographical changes. The errors are purely typographical, due to imperfection on the software program, and do not reflect any compromise in the patient's medical care. Dietary Evaluation Review Comments: 1) Ensure Enlive 240ml TID 2) Chi 1 pk BID 3) Monitor wound healing, PO intake, lab values Expected Outcomes/Goals: wound to imrpove FU 3-5 days Plan discussed with: Patient, Other (RN Summer) RYAN TAYLOR MD Apr 21, 2025 23:55
[2025-04-22] VITALS (12 sets, daily range): BP systolic 116–133; BP diastolic 70–78; PULSE 87–103; RESP 16–20; TEMP 97–98.3; O2SAT 90–99
[2025-04-22] MEDS: methylPREDNISolone SOD SUCC 40 MG/ML VL IV SCH (00:48)
[2025-04-22 05:42] LABS: Hematocrit 35.0 % (36.0-46.0); Hemoglobin 11.8 g/dL (12.2-16.2); Mean Corpuscular Hemoglobin 27.5 pg (28.0-32.0); Mean Corpuscular Volume 81.6 fL (80.0-100.0); Nucleated Red Blood Cells % 0.0 %
[2025-04-22 05:52] LABS: Chloride 101 mmol/L (98-107); Potassium 4.1 mmol/L (3.5-5.1); Sodium 139 mmol/L (136-145)
[2025-04-22 05:53] LABS: Anion Gap 7 (5-15); Calcium 9.4 mg/dL (8.7-10.4); Carbon Dioxide 31 mmol/L (20-31)
[2025-04-22 05:58] LABS: BUN/Creatinine Ratio 40.0 (10.0-20.0); Blood Urea Nitrogen 10 mg/dL (9-23)
[2025-04-22 06:07] LABS: Glucose 140 mg/dL (74-106)
[2025-04-22] MEDS: FLUCONAZOLE 200MG/100ML 100 ML IV SCH (10:25)
[2025-04-22] MEDS ORDERED: DOXY1CAP57 PO (14:19)
[2025-04-22] MEDS ORDERED: PRED20TA2 PO (14:19)
[2025-04-22] MEDS ORDERED: AUG875T PO (14:19)
--- NOTE | 2025-04-22 14:46 | DVHDS2 ---
Discharge Summary Date of Admission Apr 14, 2025 at 18:57 Date of Discharge: Apr 22, 2025 Labs/Diagnostic Data: Laboratory Results Test 04/22/25 05:05 04/21/25 05:26 04/16/25 06:15 04/14/25 15:29 White Blood Count 10.7 10^3/uL (4.4-10.8) Red Blood Count 4.29 10^6/uL (4.0-5.20) Hemoglobin 11.8 g/dL (12.2-16.2) Hematocrit 35.0 % (36.0-46.0) Mean Corpuscular Volume 81.6 fL (80.0-100.0) Mean Corpuscular Hemoglobin 27.5 pg (28.0-32.0) Mean Corpuscular Hemoglobin Concent 33.7 g/dL (32.0-36.0) Red Cell Distribution Width 15.5 % (11.8-14.3) Platelet Count 725 10^3/uL (140-450) Mean Platelet Volume 7.0 fL (6.9-10.8) Neutrophils (%) (Auto) 87.8 % (37.0-80.0) Lymphocytes (%) (Auto) 9.8 % (10.0-50.0) Monocytes (%) (Auto) 2.4 % (0.0-12.0) Eosinophils (%) (Auto) 0.0 % (0.0-7.0) Basophils (%) (Auto) 0.0 % (0.0-2.0) Neutrophils # (Auto) 9.4 10 ^3/uL (1.6-8.6) Lymphocytes # (Auto) 1.1 10 ^3/uL (0.4-5.4) Monocytes # (Auto) 0.3 10 ^3/uL (0-1.3) Eosinophils # (Auto) 0 10 ^3/uL (0-0.8) Basophils # (Auto) 0 10 ^3/uL (0-0.2) Nucleated Red Blood Cells 0.0 % Sodium Level 139 mmol/L (136-145) Potassium Level 4.1 mmol/L (3.5-5.1) Chloride Level 101 mmol/L (98-107) Carbon Dioxide Level 31 mmol/L (20-31) Anion Gap 7 (5-15) Blood Urea Nitrogen 10 mg/dL (9-23) Creatinine 0.25 mg/dL (0.550-1.02) Glomerular Filtration Rate Calc 133 mL/min (>90) BUN/Creatinine Ratio 40.0 (10.0-20.0) Serum Glucose 140 mg/dL (74-106) Calcium Level 9.4 mg/dL (8.7-10.4) Platelet Estimate Increased Total Bilirubin 0.3 mg/dL (0.2-1.0) Aspartate Amino Transferase (AST) 40 U/L (<34) Alanine Aminotransferase (ALT) 14 U/L (7-40) Alkaline Phosphatase 68 U/L (46-116) Total Protein 5.9 g/dL (5.7-8.2) Albumin 3.4 g/dL (3.2-4.8) Lactic Acid Level 1.5 mmol/L (0.4-2.0) Troponin I High Sensitivity 6 ng/L (</=34) Test 04/14/25 15:17 Urine Color Yellow (Yellow) Urine Clarity Turbid (Clear) Urine pH 7.0 (5.0-9.0) Urine Specific [place] 1.021 (1.001-1.035) Urine Protein 1+ (Negative) Urine Ketones 3+ (Negative) Urine Blood Negative /uL (Negative) Urine Nitrite 2+ (Negative) Urine Bilirubin Negative (Negative) Urine Urobilinogen Normal mg/dL (Negative) Urine Leukocyte Esterase Negative /uL (Negative) Urine RBC 4 /hpf (0 - 4) Urine Microscopic WBC 10 /HPF (0-5) Urine Squamous Epithelial Cells Few /hpf (<5) Urine Amorphous Crystals Few /hpf (None Seen) Urine Bacteria Few /hpf (None Seen) Urine Mucus Few (None Seen) Urine Glucose Normal mg/dL (Normal) Other Laboratory Tests 04/22/25 05:05 Brief Hx & Hospital Course: 04/15-patient has 10 year history of muscular sclerosis. She is bed-bound with chronic Mendoza and a baclofen pump subumbilical region. patient is seen in ER today. Patient is not speaking inadequate volume. Very low volume which might be baseline. She is able to breathe but has diffuse coarse rhonchi in bilateral lungs right > left. Patient is high-risk with immunocompromise in factors we will escalate antibiotics from ceftriaxone azithromycin 2 cefepime doxy. Patient also has blood cultures positive today with Gram-positive cocci. We will continue neck N-acetylcysteine. Patient cough is very thick neck is being tried if fails we will need pulmonology consult. We will increase patient's diet to puree. 04/16- patient small improvement compared to yesterday. She is able to speak liver more clearly. Still has very strong rhonchi bilaterally. Remains on high level oxygen Oxymizer 8 L saturating well in mid 90. She is tolerating food with diet being puree and able to drink liquids. Significant other is at bedside today. Update is no neurologist only seeing pain resume specialist. Per neurology has no further interventions to offer at this point and had approached patient with palliative/hospice. Patient remains full code. Pulmonology is consulted to eval for need for bronch. Antibiotics are broad cefepime/doxycycline. We will continue to treat patient with IV antibiotics. Other home medications are restarted for her pain and emesis spasms (scheduled baclofen, nortriptyline, gabapentin). if no improvement might need CT chest. Possible benefits with chest PT, defer to pulmonology. 04/17-04/18- patient continue treatment over the weekend. Patient is covered by covering provider. I do not notice any significant changes in management. 04/19- patient still on 6 L Oxymizer. She does not appear to be in acute respiratory distress or similar. On exam patient has continues to have rhonchi diffusely. Right lung lower lobe is almost no air movement compared to left which has very poor air movements. Patient remains on oxygen above home levels. We will get CT chest without con, follow up with palm, decrease antibiotics to Zosyn and doxycycline. Continue neck in urgent treatments.? Maybe patient also needs chest PT and and/or BiPAP. We will follow up with pulmonology 04/20- patient is feeling much better but right lower lobe is not elevated no lung sounds. We will continue IV antibiotics Zosyn doxycycline. We will trial steroids IV, IV Lasix, BiPAP 4 hours, duo nebs b.i.d. scheduled. We will give incentive spirometer. Appreciate pulmonology follow up. Plan to try to wean oxygen to goal 90-92% oxygen saturation. Possible DC tomorrow with home oxygen if able to wean down. Patient has MSSA bacteremia, blood cultures were not repeated we will get that today. 04/21- patient is feeling well back to her baseline but remains on 6 L Oxymizer. Lung air movements is better and minimally noticeable on the right lower lobe. Repeat blood cultures are negative now. Patient appears to be tachycardic she will need telemetry to assess degree of tachycardia. We will start telemetry today. Continue broad-spectrum antibiotics Zosyn and doxycycline. Pulmonology following along in his started Solu-Medrol 40 t.i.d.. We are giving her scheduled duo nebs. We will hold off further Lasix trial like yesterday due to tachycardia. She is taking small sips of water throughout the day drinking approximately 1-2 L. we will start BiPAP trials 3-4 hours nightly after dinner. RN plan discussed and we will try to wean oxygen to best ability. Pulmonology has ordered weaned to oxygen saturation > 92%. Out of precaution we will start Diflucan. 04/22- patient is back to her baseline. Speaking in more full sentences. RT able to wean off oxygen back to room air. vital signs stable. patient has some low- grade tachycardia which is stable and appears chronic. Repeat blood cultures negative. Patient is stable for discharge as per plan below. Diagnosis: Acute hypoxic respiratory failure , resolved Acute complicated multifocal pneumonia, Gram-negative Gram-positive likely Gram-positive bacteremia MSSA bacteremia Sepsis due to above Neutrophilia , resolved Tachycardia Tachypnea, resolved Quadriplegia due to multiple sclerosis Chronic remitting relapsing multiple sclerosis Acute complicated UTI with chronic urinary Mendoza Thrombocytosis Plan: - social consulted to get gurney transport back to patient home. - continue oral antibiotics 5 days. Doxycycline 100 mg twice daily for 5 days. Augmentin 875 mg twice daily for 5 days. - Take prednisone 2 tablets daily, total 40 mg daily, for 4 days - While awake use incentive spirometer every 1/2 hour. deep breath in and hold in 4 as long as possible before breathing out. - Follow up with PCP - continue other home medications not mentioned above Condition at Discharge: Guarded Final Diagnosis/Problems List Acute hypoxic respiratory failure , resolved Acute complicated multifocal pneumonia, Gram-negative Gram-positive likely Gram-positive bacteremia MSSA bacteremia Sepsis due to above Neutrophilia , resolved Tachycardia Tachypnea, resolved Quadriplegia due to multiple sclerosis Chronic remitting relapsing multiple sclerosis Acute complicated UTI with chronic urinary Mendoza Thrombocytosis Discharge Disposition: Home Discharge Instruct/Medications Diet: See Comment Diet comment: suggest puree diet Activity: No Restrictions, As Tolerated Follow Up/Referral: below Medications: below Scheduled Amoxicillin & Pot Clavulanate (Augmentin Tablet), 875 MG PO BID Baclofen (Baclofen), 1 TAB PO TID, (Reported) Doxycycline Monohydrate (Doxycycline Monohydrate), 1 CAP PO BID Gabapentin (Gabapentin), 2 CAP PO TID, (Reported) Prednisone (Prednisone), 40 MG PO DAILY Scheduled PRN Tramadol Hcl (Tramadol Hcl), 1-2 TAB PO Q4HPRN PRN for PAIN SCALE 1 THRU 6, (Reported) Miscellaneous Medications Nortriptyline HCl (Nortriptyline Hydrochlori), (Reported) Discharge Statement: "Patient was advised to return to the ER or call 911 if any headaches, dizziness, shortness of breath, chest pain, abdominal pain, bleeding, fevers, or worsening of medical condition. Patient was counseled about treatment plan, medications, possible side effects, patientverbalized understanding. All questions were answered to the best of my ability. This discharge took greater then 30 minutes in planning, reviewing documentation, counseling the patient, and discussing with other team members." Date of Service: Apr 22, 2025 Billing Provider: KIRILL KEYES MD Common Visit Codes: 66933-OCY/OBS DISCH DAY >30min KIRILL KEYES MD Apr 22, 2025 14:46
--- NOTE | 2025-04-22 22:12 | DVHPN2 ---
Progress Note - Dictate Date Seen: Apr 22, 2025 Medical Necessity Reason Pt with a Central, PICC or Fol: Yes The following are medically ne: Lopez Catheter Reason for lopez catheter: Strict I&O Subjective Patient seen and examined at bedside. Remains on supplemental oxygen Overnight events reviewed. vital signs Vital Sign Date Time Temp Pulse Resp B/P (MAP) Pulse Ox O2 Delivery O2 Flow Rate FiO2 04/22/25 16:49 98.3 102 18 93 04/22/25 16:41 123/72 (89) 04/22/25 14:15 Room Air 0.0 04/22/25 14:15 21 Total Intake and Output 04/21/25 04/21/25 04/22/25 15:00 23:00 07:00 Intake Total 200 ml 1700 ml 900 ml Output Total 1100 ml 1000 ml Balance 200 ml 600 ml -100 ml medications Current Medications Medications Dose Ordered Sig/Oscar Route Start Time Stop Time Status Last Admin Dose Admin Albuterol 2.5 mg Q6HPRN PRN NEB 04/14/25 19:00 Cancel objective Gen.: Patient lying in bed in no apparent distress. On supplemental oxygen. Head: Normocephalic, atraumatic. Eyes: EOMI/PERRLA. Ears: Normal hearing. Normal anatomy. Neck/trachea: Trachea midline, supple. Nose: Normal external anatomy. Mouth: Moist mucous membranes. Chest: Decreased air entry bilaterally. No wheezing or rhonchi. Cardiovascular: Positive S1, positive S2. Regular rate and rhythm. Abdomen: Positive bowel sounds in all 4 quadrants. Soft, non-tender, non- distended. : Deferred. Rectal: Deferred. Skin: Warm, dry. Intact. Extremities: 2+ radial pulses bilaterally. No lower extremity edema. Neuro: Awake, alert, oriented x3. No gross motor or sensory deficits. Cranial nerves II through XII intact. Gait not assessed. laboratory and microbiology Laboratory Tests 04/22/25 05:05 Test 04/22/25 05:05 Range/Units Serum Glucose 140 H 74-106 mg/dL Assessment/Plan Impression: Acute hypoxemic respiratory failure Dependence on supplemental oxygen History of multiple sclerosis Pneumonia, likely gram positive given MRSA bacteremia Pressure sores Events: Improved O2 requirements Currently on 1 LPM NC No distress. Head of bed elevation Aspiration precautions Continue antibiotics - on Zosyn/doxycycline Continue antifungal Bronchodilators scheduled Complete steroid course. Antitussive PRN for cough. Improved oxygen requirements. Patient is stable for discharge from the pulmonary standpoint. Lovenox for DVT ppx Wound care CT chest on 04/19 notable for multifocal pneumonia, RUL/RML/RLL consolidation. No pleural effusion. Labs and imaging reviewed Rest of plan as noted below Plan: Supplemental O2 Titrate to keep O2 sats above 92%. Incentive spirometry HOB elevation/Aspiration precautions Broad-spectrum antibiotics Deescalate based on cultures Antifungal - fluconazole Bronchodilators IV steroids Wound care Pain control Avoid oversedation Monitor renal function. Monitor electrolytes. Supplement as necessary. Monitor ins and outs. DVT prophylaxis - Lovenox Prognosis: Guarded given patient's multiple co-morbidities. Rest of plan per hospitalist and other consultants. Thank you Dr. Jackson for allowing me to participate in this patient's care. Further recommendations will depend on the patient's clinical course. Please do not hesitate to contact me if you have any questions or concerns. This medical document was created using an electronic medical record system with [employer] dictation system. Although these documentations are being carefully reviewed, there may still be some phonetic and typographical changes. The errors are purely typographical, due to imperfection on the software program, and do not reflect any compromise in the patient's medical care. Dietary Evaluation Review Comments: 1) Ensure Enlive 240ml TID 2) Chi 1 pk BID 3) Monitor wound healing, PO intake, lab values Expected Outcomes/Goals: wound to imrpove FU 3-5 days Plan discussed with: Patient, Other (RN) RYAN TAYLOR MD Apr 22, 2025 22:12
== END 2025-04-22 19:45 | disposition home or self-care (01) | DRG 871 ==
LOC: EDBD 14:49 → ER 14:49 → OVERFLOW 18:57 → WEST WING 04-15 16:44 → TELE-WESTW 04-21 09:35
PROVIDERS: ADMIT Student in an Organized Health Care Education/Training Program; ATTEND Student in an Organized Health Care Education/Training Program
PROC: 05H933Z Insertion of Infusion Device into Right Brachial Vein, Percutaneous Approach (ICD-10-PCS; principal; 2025-04-19)
PROC: B54MZZA Ultrasonography of Right Upper Extremity Veins, Guidance (ICD-10-PCS; 2025-04-19)
DX: A41.02 Sepsis due to Methicillin resistant Staphylococcus aureus (principal); G82.50 Quadriplegia, unspecified; J15.69 Pneumonia due to other Gram-negative bacteria; J96.01 Acute respiratory failure with hypoxia; J15.9 Unspecified bacterial pneumonia; N39.0 Urinary tract infection, site not specified; D70.9 Neutropenia, unspecified; L89.899 Pressure ulcer of other site, unspecified stage; G35 Multiple sclerosis; E87.6 Hypokalemia; D75.839 Thrombocytosis, unspecified; Z99.81 Dependence on supplemental oxygen; Z80.3 Family history of malignant neoplasm of breast; Z79.899 Other long term (current) drug therapy; Z74.01 Bed confinement status
CPT/HCPCS: 31720; 36415; 71045; 71250; 80048; 80053; 81001; 83605; 84484; 85025; 87040; 87070; 87077; 87186; 87205; 94640; 96365; G0378; J1450; J2543

== ENCOUNTER → 2025-07-22 | Outpatient (CLI) | payer BC ==
[~2025-07-22] MED LIST: AUG875T PO; BACL20TA PO; DOXY1CAP57 PO; GABA-1251 PO; NORT75CA37; PRED20TA2 PO; TRAM50TA2 PO
[2025-07-22 12:33] LABS: Hematocrit 44.9 % (36.0-46.0); Hemoglobin 14.6 g/dL (12.2-16.2); Mean Corpuscular Hemoglobin 26.5 pg (28.0-32.0); Mean Corpuscular Volume 81.4 fL (80.0-100.0); Nucleated Red Blood Cells % 0.1 %
[2025-07-22 12:36] LABS: Urine Protein, UAD Negative (Negative)
[2025-07-22 13:35] LABS: Albumin 4.8 g/dL (3.2-4.8); Alkaline Phosphatase 88 U/L (46-116); Anion Gap 11 (5-15); BUN/Creatinine Ratio 18.8 (10.0-20.0); Calcium 9.1 mg/dL (8.7-10.4); Carbon Dioxide 26 mmol/L (20-31); Chloride 102 mmol/L (98-107); Potassium 4.3 mmol/L (3.5-5.1); Sodium 139 mmol/L (136-145)
[2025-07-22 13:36] LABS: Bilirubin, Total 0.4 mg/dL (0.2-1.0); HDL Cholesterol 49 mg/dL (40-59)
[2025-07-22 13:37] LABS: Alanine Aminotransferase 56 U/L (7-40); Blood Urea Nitrogen 6 mg/dL (9-23); Cholesterol 229 mg/dL (< 200); Glucose 109 mg/dL (74-106); Total Protein 8.3 g/dL (5.7-8.2); Triglycerides 208 mg/dL (< 150)
== END | disposition home or self-care (01) ==
LOC: LAB 11:48
PROVIDERS: ATTEND Internal Medicine
DX: Z00.01 Encounter for general adult medical examination with abnormal findings (principal)
CPT/HCPCS: 36415; 80053; 80061; 81001; 83036; 84439; 84443; 85025